=== PATIENT | female | born 1970 | race Caucasian/White ===

== ENCOUNTER 2025-02-25 04:26 | Inpatient (IN) | payer OTHER, SELFPAY ==
[2025-02-24 21:35] VITALS: BP 113/76
[2025-02-24 22:04] VITALS: BMI 20.8
[2025-02-24 22:12] LABS: % Basophils 0.2 % (0-2); % Eosinophils 1.7 % (0-6); % Immature Granulocytes 0.9 % (0-0.5); % Lymphocytes 15.9 % (20.5-51.1); % Monocytes 3.6 % (1.7-9.3); % Neutrophils 77.7 % (42.2-75.2); Absolute Eosinophils 0.1 10^3/uL (0-0.7); Absolute Immature Granulocytes 0.1 10^3/uL (0-0.05); Absolute Lymphocytes 0.9 10^3/uL (1.2-3.4); Absolute Monocytes 0.2 10^3/uL (0.1-0.6); Absolute Neutrophils 4.5 10^3/uL (1.4-6.5); Hematocrit 24.3 % (37.0-47.0); Hemoglobin 7.9 g/dL (12.0-16.0); Mean Corp Hgb Conc. 32.5 g/dL (33.0-37.0); Mean Corpuscular Volume 73.9 fL (81.0-99.0); Mean Platelet Volume 9.6 fL (7.4-10.4); Nucleated Red Blood Cells % 0 %; Platelet Count 170 10^3/uL (130-400); Red Blood Cell Count 3.29 10^6/uL (4.20-5.40); Red Cell Dist. Width 15.4 % (11.5-14.5); White Blood Cell Count 5.8 10^3/uL (4.8-10.8)
--- NOTE | 2025-02-24 22:15 | ED.GENMED ---
History of Present Illness
<Tracy Salazar PA-C - Last Filed: 02/25/25 10:13>
General
Chief Complaint: Abdominal Symptoms
Source: patient and family
Exam Limitations: none
Time Seen by Provider: 02/24/25 21:59
History of Present Illness
History of Present Illness:
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 Herbie Will, first chemo treatment 6 days ago) presenting with her siblings for evaluation of abdominal pain. She reports pain in her upper abdomen for the
past week or so which has been worsening. She is also experiencing abdominal distention and feels like her abdomen is hard. She states it feels like she is 9 months . She had a temperature of 100.9 yesterday but has not had any fevers
since. She has been in contact with her oncology team who was concerned about possible ascites so she has an abdominal ultrasound scheduled for tomorrow. She had 2 episodes of vomiting today which is new. She also started to feel short of breath
which she attributes to her abdominal distention. She is having loose bowel movements. No urinary symptoms.
Phy Exam
<Tracy Salazar PA-C - Last Filed: 02/25/25 10:13>
Physical Exam
Physical Exam:
Appears uncomfortable, non-toxic
General Physical Exam
General Presentation: no apparent distress
General Skin: warm and dry
General Habitus: normal
General Mental: alert
ENT Exam
ENT Exam: normocephalic
Cardiovascular Exam
Cardiovascular Exam: regular rate/rhythm
Pulmonary Exam
Pulmonary Exam: lungs clear, no respiratory distress, no rales, no crackles, no rhonchi and no wheezing
Gastrointestinal Exam
Gastrointestinal Exam: soft and other (+Upper abdominal tenderness and distention noted. Negative fluid wave.)
Neurological Exam
Neurological Exam: alert
[place] Coma Scale
Eye Opening: Spontaneous
Verbal Response: Oriented
Motor Response: Obeys Commands
GCS Total Score: 15
Skin Exam
Skin Exam: normal color and warm/dry
Psychiatric Exam
Psychiatric Exam: normal mood/affect
<Antonia DoloresShelly Greco PA-C - Last Filed: 02/25/25 04:01>
Komal Coma Scale
GCS Total Score: 15
Course
<Tracy Salazar PA-C - Last Filed: 02/25/25 10:13>
Orders/Labs/Results
Orders:
Orders
02/24/25 21:38
IV Insert/Care/Rem.- Treatment PRN
02/24/25 22:01
Complete Blood Count/With Diff Urgent
Comprehensive Metabolic Panel Urgent
Lactic Acid Urgent
Lipase Urgent
02/24/25 22:12
Electrocardiogram (*1) Urgent
Reason for Study: Shortness of Breath
EKG- Treatment ONCE
02/24/25 22:14
0.9% Sodium Chloride 1000 ml [Nss] 1,000 ml IV BOLUS
HYDROmorphone [Dilaudid] 0.5 mg IV NOW STA
Iohexol [Omnipaque] See Protocol PO NOW STA
Ondansetron Injectable [Zofran] 4 mg IV NOW STA
02/24/25 22:58
Troponin I Urgent
02/24/25 23:17
Diphenhydramine [Benadryl] 25 mg IV NOW STA
Prochlorperazine [Compazine] 10 mg IV NOW STA
02/25/25 00:30
CT Pe/abd/pel W Urgent
Comment: CHANGED TO COMBINED
Reason For Exam: SOB
02/25/25 01:01
NG Tube [GI tube insertion- Treatment] ONCE
02/25/25 01:33
Heparin 4,500 units IV NOW STA
02/25/25 01:45
Heparin 65701 Units/250 ml 25,000 units in 250 ml IV PER PROTOCOL
Weight to be used for heparin protocol in kilograms (kg):: 56.8
Protocol:: DVT/PE
PTT Goal Range to be used:: PTT 73 to 111 seconds
Order type:: Initial
INITIAL Infusion Dose (UNITS/KG/hr) & then follow protocol:: 18 units/kg/hr
Infusion Dose in UNITS/hr & then follow protocol (UNITS/hr):: 1,000
INFUSION RATE in mL/hr & then follow protocol (mL/hr):: 10
For DVT/PE algorithm, re-bolus for low PTT?: Yes
PTT less than or equal to 64 seconds:: Re-bolus 80 units/kg (max 10,000units). Increase by 200 units/hr
(+ 2mL/hr)
PTT 64.1 to 72.9 seconds:: Re-bolus 40 units/kg (max 5,000 units). Increase by 100 units/hr
(+ 1mL/hr)
PTT 73 to 111 seconds:: Target Range. No change in rate.
PTT 111.1 to 130.9 seconds:: Decrease rate by 100 units/hr (- 1 mL/hr)
PTT 131 to 199.9 seconds:: HOLD for 1 hr. Then decrease by 200 units/hr (- 2mL/hr)
PTT greater than or equal to 200 seconds:: HOLD for 2 hrs & Notify Provider. Then decrease by 200 units/hr
(- 2mL/hr)
Lab follow-up:: Each change, PTT q6h until 2 consecutive are therapeutic. Then
PTT daily.
02/25/25 02:23
PTT Urgent
Comment: Obtain baseline before beginning heparin infusion if not already collected
02/25/25 02:[address] Non Medication Order As Directed
Physician Order: PTT 6 hours after initial start of Heparin infusion
Above order entered?: Yes
02/25/25 03:30
Admit/Transfer Patient As Directed
Co-Sign Provider:
Level of Care: Inpatient admission
Assign to:: IMU- Intermediate Care
Physician / Group: [facility]
Diagnosis: Pulmonary Emboli, Duodenal Mass / GOO
Reason for Hospitalization: Pulmonary Emboli, Duodenal Mass / GOO
Expected length of stay greater than two midnights?: Yes
ELOS- Estimated Length of Stay in days: 5
I certify the patient meets the requirements for IP care: Yes
PRN Pain Medication Management As Directed
May give lesser potent ordered pain med per pt: Yes
preference::
Protocol:: Medication orders for pain may be administered in a
manner that supports deferring to patient preference
when the pt is:
- Requesting an ordered lesser potent pain medication.
Least to most potent pain medications are defined
as: acetaminophen < NSAID < tramadol < opioids
(morphine, oxycodone, hydromorphone).
- Requesting a lesser dose of the same medication IF
ORDERED.
- Requesting a less intrusive route of administration
if both routes are prescribed by the provider (PO <
IV).
02/25/25 03:31
Code Status As Directed
Resuscitation Status: Full Code
02/25/25 03:37
Heparin 4,500 units IV PRN PRN
02/25/25 03:39
Heparin 2,300 units IV PRN PRN
02/25/25 04:00
Flush (0.9% Sodium Chloride) [Flush (Nss)] See Dose Instructions IV PER PROTOCOL
02/25/25 05:02
Acetaminophen [Tylenol] 650 mg PO Q4HPRN PRN
HYDROmorphone [Dilaudid] 0.5 mg IV Q4HPRN PRN
Lactated Ringers [Lr] 1,000 ml IV 100 mls/hr
Ondansetron Injectable [Zofran] 4 mg IV Q6HPRN PRN
02/25/25 05:02
Echo 2D MMode Doppler [Echo 2D MMode Color/Doppler] Routine
Reason for Study: PE
Consult Notification Routine
Specialty to Notify: Gastroenterology
Date consulting provider notified: 02/25/25
Time consulting provider notified: 07:10
Notified:: Provider
Comment: [place] Text
GASTROINTESTINAL CONSULT Routine
Consulting Provider: Evelina Whitten
Was physician already notified: No
Reason for consult: Duodenal Mass / GOO
Heparin Protocol- PTT Orders As Directed
PTT per Heparin protocol: -Obtain CBC and baseline PTT - if not already collected.
-Obtain PTT 6 hours from start of infusion. Then, every 6 hours until 2 consecutive
PTT's are therapeutic. Then, PTT Daily.
-With each rate change, obtain PTT every 6 hours until 2 consecutive PTT's are
therapeutic. Then, PTT Daily.
Activity As Directed
Activity Level: Ambulate
With Assistance
EKG with chest pain [ECG as needed] As Directed
ECG as needed for:: Chest Pain
Gastrointestinal Tubes As Directed
Type: [place] sump
To suction?: Yes
Type of suction: Low intermittent
Irrigate tube?: Yes
Irrigant: Tap Water
Frequency: Q4H
Amount in mls: 30
Irrigation Directions: Irrigate Q4H and PRN
I/O [Intake/ Output] As Directed
Frequency: Per unit guidelines
Notify MD As Directed
Notify physician if: PTT is greater than or equal to 200.
Vital Signs As Directed
Frequency: Per unit guidelines
Weight As Directed
Frequency: Daily
Oxygen Therapy [O2 Therapy] [RESP] Routine
Titrate/Wean O2 to maintain O2 sat greater than (%): 94
02/25/25 Breakfast
NPO
Allow oral meds: Yes
Allow clear liquids: Sips of Clears
NPO with Ice Chips: Yes
02/25/25 08:00
Pantoprazole [Protonix IV] 40 mg IV DAILY
02/25/25 09:38
Basic Metabolic Panel IN AM
Ferritin Routine
Iron Routine
Total Iron Binding Routine
02/27/25 06:00
Complete Blood Count/No Diff Q2D
Comment: notify provider: Platelet count < 130,000 or decrease by 50% from baseline
03/01/25 06:00
Complete Blood Count/No Diff Q2D
Comment: notify provider: Platelet count < 130,000 or decrease by 50% from baseline
03/03/25 06:00
Complete Blood Count/No Diff Q2D
Comment: notify provider: Platelet count < 130,000 or decrease by 50% from baseline
03/05/25 06:00
Complete Blood Count/No Diff Q2D
Comment: notify provider: Platelet count < 130,000 or decrease by 50% from baseline
03/07/25 06:00
Complete Blood Count/No Diff Q2D
Comment: notify provider: Platelet count < 130,000 or decrease by 50% from baseline
03/09/25 06:00
Complete Blood Count/No Diff Q2D
Comment: notify provider: Platelet count < 130,000 or decrease by 50% from baseline
03/11/25 06:00
Complete Blood Count/No Diff Q2D
Comment: notify provider: Platelet count < 130,000 or decrease by 50% from baseline
03/13/25 06:00
Complete Blood Count/No Diff Q2D
Comment: notify provider: Platelet count < 130,000 or decrease by 50% from baseline
Abnormal Lab Results
02/24/25
22:01
RBC 3.29 L 10^6/uL
(4.20-5.40)
Hgb 7.9 L g/dL
(12.0-16.0)
Hct 24.3 L %
(37.0-47.0)
MCV 73.9 L fL
(81.0-99.0)
MCH 24.0 L pg
(27.0-31.0)
MCHC 32.5 L g/dL
(33.0-37.0)
RDW 15.4 H %
(11.5-14.5)
Abs Immat Gran (auto) 0.1 H 10^3/uL
(0-0.05)
Absolute Lymphs (auto) 0.9 L 10^3/uL
(1.2-3.4)
Immature Gran % 0.9 H %
(0-0.5)
Neutrophils % 77.7 H %
(42.2-75.2)
Lymphocytes % 15.9 L %
(20.5-51.1)
Creatinine 0.5 L mg/dL
(0.6-1.0)
Glucose 125 H mg/dl
(70-99)
AST 63 H U/L
(14-36)
ALT 122 H U/L
(0-35)
Alkaline Phosphatase 392 H U/L
(38-126)
Albumin 3.4 L g/dl
(3.5-5.0)
Lipase 381 H U/L
(23-300)
02/24/25 22:01
02/24/25 22:01
Vital Signs
Initial and Last Documented VS:
Initial Vital Signs
Temp Pulse Resp BP Pulse Ox
99.2 F 107 19 113/76 96
02/24/25 21:35 02/24/25 21:35 02/24/25 21:35 02/24/25 21:35 02/24/25 21:35
Last Documented Vital Signs
Temp Pulse Resp BP Pulse Ox
98.6 F 94 19 119/64 94
02/25/25 07:15 02/25/25 06:00 02/25/25 06:00 02/25/25 06:00 02/25/25 06:00
<Antonia Greco PA-C - Last Filed: 02/25/25 04:01>
Orders/Labs/Results
Orders:
Orders
02/24/25 21:38
IV Insert/Care/Rem.- Treatment PRN
02/24/25 22:01
Complete Blood Count/With Diff Urgent
Comprehensive Metabolic Panel Urgent
Lactic Acid Urgent
Lipase Urgent
02/24/25 22:12
Electrocardiogram (*1) Urgent
Reason for Study: Shortness of Breath
EKG- Treatment ONCE
02/24/25 22:14
0.9% Sodium Chloride 1000 ml [Nss] 1,000 ml IV BOLUS
HYDROmorphone [Dilaudid] 0.5 mg IV NOW STA
Iohexol [Omnipaque] See Protocol PO NOW STA
Ondansetron Injectable [Zofran] 4 mg IV NOW STA
02/24/25 22:58
Troponin I Urgent
02/24/25 23:17
Diphenhydramine [Benadryl] 25 mg IV NOW STA
Prochlorperazine [Compazine] 10 mg IV NOW STA
02/25/25 00:30
CT Pe/abd/pel W Urgent
Comment: CHANGED TO COMBINED
Reason For Exam: SOB
02/25/25 01:01
NG Tube [GI tube insertion- Treatment] ONCE
02/25/25 01:33
Heparin 4,500 units IV NOW STA
02/25/25 01:45
Heparin 75739 Units/250 ml 25,000 units in 250 ml IV PER PROTOCOL
Weight to be used for heparin protocol in kilograms (kg):: 56.8
Protocol:: DVT/PE
PTT Goal Range to be used:: PTT 73 to 111 seconds
Order type:: Initial
INITIAL Infusion Dose (UNITS/KG/hr) & then follow protocol:: 18 units/kg/hr
Infusion Dose in UNITS/hr & then follow protocol (UNITS/hr):: 1,000
INFUSION RATE in mL/hr & then follow protocol (mL/hr):: 10
For DVT/PE algorithm, re-bolus for low PTT?: Yes
PTT less than or equal to 64 seconds:: Re-bolus 80 units/kg (max 10,000units). Increase by 200 units/hr
(+ 2mL/hr)
PTT 64.1 to 72.9 seconds:: Re-bolus 40 units/kg (max 5,000 units). Increase by 100 units/hr
(+ 1mL/hr)
PTT 73 to 111 seconds:: Target Range. No change in rate.
PTT 111.1 to 130.9 seconds:: Decrease rate by 100 units/hr (- 1 mL/hr)
PTT 131 to 199.9 seconds:: HOLD for 1 hr. Then decrease by 200 units/hr (- 2mL/hr)
PTT greater than or equal to 200 seconds:: HOLD for 2 hrs & Notify Provider. Then decrease by 200 units/hr
(- 2mL/hr)
Lab follow-up:: Each change, PTT q6h until 2 consecutive are therapeutic. Then
PTT daily.
02/25/25 02:23
PTT Urgent
Comment: Obtain baseline before beginning heparin infusion if not already collected
02/25/25 02:[address] Non Medication Order As Directed
Physician Order: PTT 6 hours after initial start of Heparin infusion
Above order entered?: Yes
02/25/25 03:30
Admit/Transfer Patient As Directed
Co-Sign Provider:
Level of Care: Inpatient admission
Assign to:: IMU- Intermediate Care
Physician / Group: Clint
Diagnosis: Pulmonary Emboli, Duodenal Mass / GOO
Reason for Hospitalization: Pulmonary Emboli, Duodenal Mass / GOO
Expected length of stay greater than two midnights?: Yes
ELOS- Estimated Length of Stay in days: 5
I certify the patient meets the requirements for IP care: Yes
PRN Pain Medication Management As Directed
May give lesser potent ordered pain med per pt: Yes
preference::
Protocol:: Medication orders for pain may be administered in a
manner that supports deferring to patient preference
when the pt is:
- Requesting an ordered lesser potent pain medication.
Least to most potent pain medications are defined
as: acetaminophen < NSAID < tramadol < opioids
(morphine, oxycodone, hydromorphone).
- Requesting a lesser dose of the same medication IF
ORDERED.
- Requesting a less intrusive route of administration
if both routes are prescribed by the provider (PO <
IV).
02/25/25 03:31
Code Status As Directed
Resuscitation Status: Full Code
02/25/25 03:37
Heparin 4,500 units IV PRN PRN
02/25/25 03:39
Heparin 2,300 units IV PRN PRN
02/25/25 04:00
Flush (0.9% Sodium Chloride) [Flush (Nss)] See Dose Instructions IV PER PROTOCOL
02/25/25 05:02
Acetaminophen [Tylenol] 650 mg PO Q4HPRN PRN
HYDROmorphone [Dilaudid] 0.5 mg IV Q4HPRN PRN
Lactated Ringers [Lr] 1,000 ml IV 100 mls/hr
Ondansetron Injectable [Zofran] 4 mg IV Q6HPRN PRN
02/25/25 05:02
Echo 2D MMode Doppler [Echo 2D MMode Color/Doppler] Routine
Reason for Study: PE
Consult Notification Routine
Specialty to Notify: Gastroenterology
Date consulting provider notified: 02/25/25
Time consulting provider notified: 07:10
Notified:: Provider
Comment: [place] Text
GASTROINTESTINAL CONSULT Routine
Consulting Provider: Evelina Whitten
Was physician already notified: No
Reason for consult: Duodenal Mass / GOO
Heparin Protocol- PTT Orders As Directed
PTT per Heparin protocol: -Obtain CBC and baseline PTT - if not already collected.
-Obtain PTT 6 hours from start of infusion. Then, every 6 hours until 2 consecutive
PTT's are therapeutic. Then, PTT Daily.
-With each rate change, obtain PTT every 6 hours until 2 consecutive PTT's are
therapeutic. Then, PTT Daily.
Activity As Directed
Activity Level: Ambulate
With Assistance
EKG with chest pain [ECG as needed] As Directed
ECG as needed for:: Chest Pain
Gastrointestinal Tubes As Directed
Type: [place] sump
To suction?: Yes
Type of suction: Low intermittent
Irrigate tube?: Yes
Irrigant: Tap Water
Frequency: Q4H
Amount in mls: 30
Irrigation Directions: Irrigate Q4H and PRN
I/O [Intake/ Output] As Directed
Frequency: Per unit guidelines
Notify MD As Directed
Notify physician if: PTT is greater than or equal to 200.
Vital Signs As Directed
Frequency: Per unit guidelines
Weight As Directed
Frequency: Daily
Oxygen Therapy [O2 Therapy] [RESP] Routine
Titrate/Wean O2 to maintain O2 sat greater than (%): 94
02/25/25 Breakfast
NPO
Allow oral meds: Yes
Allow clear liquids: Sips of Clears
NPO with Ice Chips: Yes
02/25/25 08:00
Pantoprazole [Protonix IV] 40 mg IV DAILY
02/25/25 09:38
Basic Metabolic Panel IN AM
Ferritin Routine
Iron Routine
Total Iron Binding Routine
02/27/25 06:00
Complete Blood Count/No Diff Q2D
Comment: notify provider: Platelet count < 130,000 or decrease by 50% from baseline
03/01/25 06:00
Complete Blood Count/No Diff Q2D
Comment: notify provider: Platelet count < 130,000 or decrease by 50% from baseline
03/03/25 06:00
Complete Blood Count/No Diff Q2D
Comment: notify provider: Platelet count < 130,000 or decrease by 50% from baseline
03/05/25 06:00
Complete Blood Count/No Diff Q2D
Comment: notify provider: Platelet count < 130,000 or decrease by 50% from baseline
03/07/25 06:00
Complete Blood Count/No Diff Q2D
Comment: notify provider: Platelet count < 130,000 or decrease by 50% from baseline
03/09/25 06:00
Complete Blood Count/No Diff Q2D
Comment: notify provider: Platelet count < 130,000 or decrease by 50% from baseline
03/11/25 06:00
Complete Blood Count/No Diff Q2D
Comment: notify provider: Platelet count < 130,000 or decrease by 50% from baseline
03/13/25 06:00
Complete Blood Count/No Diff Q2D
Comment: notify provider: Platelet count < 130,000 or decrease by 50% from baseline
Abnormal Lab Results
02/24/25
22:01
RBC 3.29 L 10^6/uL
(4.20-5.40)
Hgb 7.9 L g/dL
(12.0-16.0)
Hct 24.3 L %
(37.0-47.0)
MCV 73.9 L fL
(81.0-99.0)
MCH 24.0 L pg
(27.0-31.0)
MCHC 32.5 L g/dL
(33.0-37.0)
RDW 15.4 H %
(11.5-14.5)
Abs Immat Gran (auto) 0.1 H 10^3/uL
(0-0.05)
Absolute Lymphs (auto) 0.9 L 10^3/uL
(1.2-3.4)
Immature Gran % 0.9 H %
(0-0.5)
Neutrophils % 77.7 H %
(42.2-75.2)
Lymphocytes % 15.9 L %
(20.5-51.1)
Creatinine 0.5 L mg/dL
(0.6-1.0)
Glucose 125 H mg/dl
(70-99)
AST 63 H U/L
(14-36)
ALT 122 H U/L
(0-35)
Alkaline Phosphatase 392 H U/L
(38-126)
Albumin 3.4 L g/dl
(3.5-5.0)
Lipase 381 H U/L
(23-300)
02/24/25 22:01
02/24/25 22:01
Vital Signs
Initial and Last Documented VS:
Initial Vital Signs
Temp Pulse Resp BP Pulse Ox
99.2 F 107 19 113/76 96
02/24/25 21:35 02/24/25 21:35 02/24/25 21:35 02/24/25 21:35 02/24/25 21:35
Last Documented Vital Signs
Temp Pulse Resp BP Pulse Ox
98.6 F 94 19 119/64 94
02/25/25 07:15 02/25/25 06:00 02/25/25 06:00 02/25/25 06:00 02/25/25 06:00
Stephielt;Tracy Salazar PA-C - Last Filed: 02/25/25 10:13>
MDM/Problems Addressed
Differential Diagnosis Includes:
54yoF here with abd pain, distention, and SOB. Two episode of vomiting today. Hx of duodenal adenocarcinoma. Just started chemo 6 days ago. HR 107. Remainder of vitals are stable. She appears uncomfortable but is non-toxic. No signs of peritonitis
on abdominal exam. Negative fluid wave. Differential diagnosis includes but is not limited to: cancer related pain, SBO, constipation, ascites
Initial ED plan: Check abdominal labs, lactate, troponin/EKG, and CTA CAP with PO contrast. IV Dilaudid, Zofran, and fluid bolus for symptoms.
Final assessment: Hemoglobin 7.9. I was able to review her labs from 02/18/25 and hemoglobin was 7.4 at that time. Mild transaminitis and lipase elevation noted. Patient reports a known history of liver metastases. CT reviewed personally which shows
bilateral pulmonary emboli. Marked gastric distention also noted. NG tube and heparin gtt ordered. Case signed out to Antonia Greco PA-C pending formal radiology read.
<Tracy Salazar PA-C - Last Filed: 02/25/25 10:13>
*EKG
Interpreted by ED Provider?: Yes
EKG Intrepretation Date: 02/24/25
Heart Rate: 94
Rate: normal
Rhythm: sinus
[place]: normal axis
Interval: normal interval
QRS Pattern: normal QRS
Ischemia: no ischemia
<Antonai Greco PA-C - Last Filed: 02/25/25 04:01>
*Pulse Oximetry
Patient hypoxic: no
*Critical Care Note
Total Time (30-74mins, 75-104mins- exclusive of procedures): Not Applicable
<Antonia Greco PA-C - Last Filed: 02/25/25 04:01>
Update Note
Update Note:
Update
I received patient in signout.
Her CT scan reveals bilateral pulmonary emboli, no evidence of heart strain, there is evidence of pulmonary infarct. Heparin was started prior to my assessment. In addition, she has a duodenal mass causing gastric outlet obstruction. NG tube was
placed. She is stable at this time. There is also evidence of a mild colitis however in light of no fever no white count, will defer possible antibiotics to hospitalist. Patient referred for admission.
ED Attending Note
<Tracy Salazar PA-C - Last Filed: 02/25/25 10:13>
-
Portions of this chart may have been created with voice recognition software.� Occasional wrong word or��sound alike� substitutions may have occurred due to the inherent limitations of voice recognition software.
Discharge Plan
Departure
Patient Disposition: Admit
Date of Disposition: 02/25/25
Time of Disposition: 03:04
Presentation/result/management discussed w/ accepting MD/DO: Hospitalist
Patient with high blood pressure during this ER visit?: Yes
Condition: Fair
Discharge Problem:
Bilateral pulmonary embolism, Gastric outlet obstruction, Duodenal cancer
Interventions
Interventions:
*Risk Screen - Suicide Last Done: 02/25/25 05:20
*General Assessment Last Done: 02/25/25 05:16
*Neglect/Abuse Screening Last Done: 02/24/25 21:35
*ED- Fall Risk Assessment Last Done: 02/25/25 05:16
*ED COVID-19 Vaccine History Last Done: 02/25/25 05:16
*Nursing Disposition Last Done: 02/25/25 05:16
ZL-Hrjzth-Jvrzakrfgq Assessment Last Done: 02/24/25 22:07
Discharge Date and Time
Discharge Date/Time: 02/25/25 05:17
[2025-02-24] MEDS: OMNIPAQUE 50 ML PO (22:23)
[2025-02-24 22:24] LABS: ALT (SGPT) 122 U/L (0-35); AST (SGOT) 63 U/L (14-36); Albumin 3.4 g/dl (3.5-5.0); Alkaline Phosphatase 392 U/L (38-126); Blood Urea Nitrogen 9 mg/dl (7-17); Calcium 9.1 mg/dl (8.4-10.2); Carbon Dioxide 29 mmol/L (22-30); Chloride 101 mmol/L (98-107); Estimated Creatinine Clearance 94 ml/min; Glucose 125 mg/dl (70-99); Lipase 381 U/L (23-300); Potassium 3.9 mmol/L (3.5-5.1); Sodium 136 mmol/L (135-145); Total Bilirubin 0.5 mg/dl (0.2-1.3); Total Protein 6.3 g/dl (6.3-8.2); eGFR > 60.00
[2025-02-24 22:33] LABS: Lactic Acid 0.7 mmol/L (0.7-2.0)
[2025-02-24] MEDS: DILAUDID 0.5 MG IV (22:35)
[2025-02-24] MEDS: ZOFRAN 4 MG IV (22:36)
[2025-02-24] MEDS: NSS 1000 IV (22:36)
[2025-02-24 22:40] VITALS: BP 109/59
[2025-02-24 23:00] VITALS: BP 108/68
[2025-02-24 23:34] LABS: Troponin I < 0.012 ng/ml
[2025-02-25] VITALS (18 sets, daily range): BP systolic 108–128; BP diastolic 55–85
[2025-02-25] MEDS: BENADRYL IV (01:13)
[2025-02-25] MEDS: COMPAZINE IV (01:14)
[2025-02-25] MEDS: BENADRYL 25 MG IV (02:20)
[2025-02-25] MEDS: COMPAZINE 10 MG IV (02:21)
[2025-02-25 03:11] LABS: APTT 26.1 Sec (23.4-35.0)
--- NOTE | 2025-02-25 03:34 | HPS.HSE ---
Family Physician
-
Family Physician: NOT KNOW UNKNOWN - PT DOES
Chief Complaint
-
Abd Pain / Distention
History of Present Illness
Patient is a 54y F with PMH significant for recently diagnosed duodenal adenocarcinoma who presents to ED complaining of abdominal pain and distention. History obtained from patient and her family at the bedside. Patient was diagnosed with
duodenal adenocarcinoma in December 2024. She is followed at [facility] by Dr. Herbie Will. Patient recently started chemotherapy with her first dose last . She had been having issues with poor appetite, nausea and abdominal distention even prior
to beginning chemo. These symptoms persisted after chemo. Patent had no N/V/D or other acute symptoms immediately following chemotherapy session.
This evening, patient developed N/V and increased abdominal distention and presented to the ED for further evaluation.
She has been having bowel movements and reports 1-2 BM daily of loose / soft / non-bloody stools.
She was having fevers prior to the chemo which seemed to have improved. She did have elevated temp at 100.9 this evening prior to presentation.
Patient does report some SOB / DAVIS recently - which had been attributed to general weakness / fatigue.
No chest pain. No cough.
Medical History
Past Medical History
Past Medical History: Reports Other
Additional Past Medical History:
Duodenal Adenocarcinoma
Breast Cancer s/p Lumpectomy and XRT
Past Surgical History: Reports Other
Additional Past Surgical History:
Lumpectomy
Cholecystectomy
Social History
Tobacco: Non-smoker
Alcohol: Occasional
Drug: None
Personal:
Living: With Family
Family History
Family History: Other (Father: Prostate Cancer Aunts / Cousins: Breast Cancer, Colon Cancer, Uterine Cancer, Leukemia)
Allergies / Home Medications
Allergies reflects when Allergies were last updated in [facility], IP.
Home Medications with original date entered in [facility], IP
Allergy/Medication List:
Chemotherapy (Oxaliplatin, Irinotecan, Leucovorin, 5-FU)
Antiemetics
Vitamins
Review of Systems
-
History Source: Patient and Family
A 12 point ROS was completed and negative except as noted: Yes
Constitutional: Reports Fever and Fatigue; Denies Chills
EENT: Denies Sore Throat
Respiratory: Reports Trouble Breathing; Denies Cough
Cardiac: Denies Chest Pain or Palpitations
Abdomen/GI: Reports Abdominal Pain, Nausea, Vomiting, Diarrhea and Anorexia; Denies Bloody Stools or Black Stools
: Denies Dysuria or Frequency
Musculoskeletal: Denies Joint Pain, Muscle Pain or Edema
Neurological: Reports Weakness; Denies Dizzy or Headache
Physical Exam
Vital Signs
Vital Signs
Temp Pulse Resp BP Pulse Ox
99.2 F 106 12 128/62 94
02/24/25 21:35 02/25/25 02:30 02/25/25 02:30 02/25/25 02:28 02/25/25 01:51
Physical Exam
General: Other (Ill-appearing 54y F in mild distress due to abd pain / nausea.)
HEENT: Other (NG in place with light yellow drainage in device.)
Respiratory: Other (Decreased at bases - otherwise clear.)
Cardiac: S1/S2 and Tachycardia; No Murmur
GI: Soft, Non Tender, Normal Bowel Sounds and Other (Mildly distended. Pos bowel sounds. Not tender.)
Musculoskeletal: No Clubbing, No Cyanosis and No Edema
Neuro: AO x 3
Laboratory Results
-
02/24/25 22:01
02/24/25 22:01
Laboratory Results
APTT 26.1 Sec (23.4-35.0) 02/25/25 02:23
Lactic Acid 0.7 mmol/L (0.7-2.0) 02/24/25 22:01
Total Bilirubin 0.5 mg/dl (0.2-1.3) 02/24/25 22:01
AST 63 U/L (14-36) H 02/24/25 22:01
ALT 122 U/L (0-35) H 02/24/25 22:01
Alkaline Phosphatase 392 U/L (38-126) H 02/24/25 22:01
Troponin I < 0.012 ng/ml 02/24/25 22:58
Lipase 381 U/L (23-300) H 02/24/25 22:01
Impression/Plan
-
A/P: Patient is a 54y F with PMH significant for duodenal adenocarcinoma s/p initial chemo session who presents to ED complaining of abdominal distention, N/V.
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
Gastric Outlet Obstruction secondary to the above
- Admit for further evaluation and treatment.
- NG placed in the ED for decompression with significant improvement in distention / discomfort.
- Ice chips / sips for comfort. Supportive care / antiemetics.
- GI evaluation for additional recommendations / ? endoscopic exam with possible stenting.
- Followed by Dr. Herbie Will at [facility].
- s/p initial course of chemo last (FOLFIRINOX).
Bilateral Pulmonary Emboli
- Multiple, bilateral, subsegmental lesions seen on CTA.
- Likely secondary hypercoagulability of malignancy.
- Pos SOB. No chest pain.
- IV heparin started.
- Check Echo.
- Transition to OAC v Lovenox prior to discharge.
- Follow for any new chest pain, worsening dyspnea, etc.
Microcytic Anemia
- Hgb today is 7.9g/dL.
- Review of recent [facility] labs notes that Hgb was 7.4 prior to chemo.
- Patient received PRBCs x 1 during / after chemo.
- Follow H&H for any changes. Check iron studies.
- Transfuse if Hgb decreases (< 7). Consent in chart.
DVT Prophylaxis: On IV Heparin
Code Status: Full
[2025-02-25] MEDS: HEPARIN 25000 UNITS/250 ML IV (03:43)
[2025-02-25] MEDS: HEPARIN 4500 UNITS IV ×2 (03:55→19:33)
--- NOTE | 2025-02-25 05:46 | PTCARENOTE ---
Rec'd pt as new admit from ED RN. Heparin gtt intact at 1000units. NSR on CM, 95% on RA, BP 120/72. Denies pain at this time, but reports sore throat, discomfort with swallowing d/t NGT. NGT patent in L nare at 55 christine, connected to LIS per MD
orders. Call torre within reach. Family at bedside.
--- NOTE | 2025-02-25 09:08 | CON.GI ---
Addendum entered and electronically signed by Shalini Perez MD 02/25/25 13:47:
I saw and examined the patient.
The DATA SUPPORT ANALYST's note was reviewed and I agree with the note.
Comment: This is a very pleasant unfortunate 54 year old female with prior history of breast cancer and recently diagnosed with duodenal adenocarcinoma and gets her oncology care at [facility]. She says that she had her gallbladder removed in September for
abdominal pain at [facility] but her abdominal pain did not resolve with this then had an endoscopy and was noted to have a duodenal stricture with mass and was then referred to [facility] for endoscopic ultrasound and upon further testing was told
about 2 months ago that she had metastatic duodenal adenocarcinoma and was started on chemotherapy about a week ago. She follows up with Dr. Will at [facility] she now presents with worsening abdominal pain in the epigastric area with decreased oral
intake and early satiety and CT shows gastric outlet obstruction, also shows liver metastatic lesions and also was diagnosed with new PE and has been started on heparin. She lost about 8 pounds over the past 2 to 3 months. after placement of NG
tube in the ER 2 L was drained and she is feeling better.
Assessment and plan metastatic duodenal adenocarcinoma with metastatic lymph nodes and liver mets with gastric outlet obstruction feeling better after NG tube for decompression and Dr. Negron had discussed with Dr. Will they were agreeable with
proceeding with duodenal stent here and if unable to place a stent then possible transfer to [facility] to discuss other surgical/endoscopic options for decompression. Discussed with Dr. Davis and patient is scheduled for later in the afternoon. Heparin
held at 10 AM for the procedure needs to be restarted after the procedure
Original Note:
Consultation
-
Date/Time Consultation Requested: 02/25/25 0500
Date/Time Consultation Performed: 02/25/25 0915
Requesting Provider: Elvis Jaramillo DO
Performing Provider: EDWAR Main, Shalini Perez MD
Reason for Consultation: concern for duodenal obstruction
Medical History
Chief Complaint / HPI
Chief Complaint: abdominal pain and distention
History of Present Illness:
Pt is a 54yo with hx breast CA with prior lumpectomy and XRT and recently diagnosed duodenal adeno CA and anemia with recent transfusion. She recently started chemo at [facility] with Dr. Dominguez. She now presents with abdominal pain and distention
that has been worsening over time with wt loss and limited oral intakes. CT on admission with concern for gastric outlet obstruction. Also noted b/l PE and pt was placed on heparin. Asked to see for duodenal obstruction.
In review with patient and family had EGD at [facility] in October with inability to pass scope. She had delay with getting appt at [place] but had work up as below since end of December. She has been living on egg, yogert and shakes and now
with increased bloating and difficulty eating. She admits to some diarrhea noted yesterday. Wt loss 8-10 lbs since October. She denies GERD, hematemesis, odynophagia, abdominal pain, or rectal bleeding. NGT placement with 2 liters in ER and now
clear fluid. hbg 7.9, WBC 5,8, platelets 170, bili 0.5, AST 63, ALT 122, alk phos 392, lipase 381. albumin 3.4. No NSAIDs.
02/25/25 CT Pe/abd/pel W
1. Bilateral pulmonary embolism with emboli in segmental and subsegmental branches as detailed above. No findings suggestive of right heart strain at CT.
2. Marked gastric distention consistent with outlet obstruction. Transition apparently at level of proximal duodenum, not well seen. Site of the known duodenal malignancy is not definitively identified at CT.
3. Hepatomegaly and innumerable hepatic metastases. Metastatic retroperitoneal lymphadenopathy.
4. Small volume of ascites.
[facility] chart review:
01/20/25- EUS- duodenal stricture mass found in region of duodenal bulb, stricture pancreatic neck and heads/p FNA no signs of pathology in genu of pancreas, panc body and tail, several enlarged nodes in peripancreatic and periportal region with bx,
no CBD pathology
01/29/25- liver biopsy adeno CA moderate differentiated
01/2025- MRI abdomen - ill defined mass along pancreatic duodenal groove with overall arterial phases hypoenhancement worrisome for malignancy - unclear if pancreatic origin or arising from subacent bowel, t/c EGD, man pancreatic duct not dilated
upper abdominal adenopathy hyperenhancing in liver possible collision tumor t/c liver bx no duodenal outlet obstruction
01/2025- CEA 445.1, CA 19-9 393, 940
01/2025- path small intestine - adeno CA in background of erosions and dysplastic epithelium, pancreas pancreatic/duodenal mass adeno CA, lymph node- nora-pancreatic adeno CA
-01/2025- WBC 10, hbg 7.4, hct 23,bili 0.5, AST 28, ALT 32, alk phos 218,
-01/2025 CT chest no PE
Past Medical History
Past Medical History: Cancer (duodenal adeno CA, breast Ca with lumpectomy and XRT)
Past Surgical History: Cholecystectomy and Other (lumpectomy)
Social History
Tobacco: Non-Smoker
Alcohol: None
Drug: None
Living: With Family (parents )
Family History
Family History: Other (2 aunts with colon CA)
Allergies / Home Medications
Allergy/AdvReac Type Severity Reaction Status Date / Time
No Known Allergies Allergy Unverified 02/24/25 21:34
�Medication �Instructions �Recorded
Unobtainable 02/25/25
Review of Systems
-
History Source: Patient and Family (brother and sister )
Constitutional: Reports Weight Loss
EENT: Reports No Symptoms
Respiratory: Reports No Symptoms
Cardiac: Reports No Symptoms
Abdomen/GI: Reports Abdominal Pain, Nausea, Vomiting, Diarrhea and Other (bloating )
: Reports No Symptoms
Musculoskeletal: Reports No Symptoms
Skin: Reports No Symptoms
Neurological: Reports No Symptoms
Endocrine: Reports No Symptoms
Hematologic/Lymphatic: Reports No Symptoms
Vital Signs
Temp Pulse Resp BP Pulse Ox
99.2 F 94 19 119/64 94
02/24/25 21:35 02/25/25 06:00 02/25/25 06:00 02/25/25 06:00 02/25/25 06:00
Physical Exam
Exam
General: Well Developed, Well Nourished and No Apparent Distress
HEENT: Normocephalic
Respiratory: Clear
Cardiac: Regular Rhythm
GI: Soft, Distended (mild) and Other (NGT to suction 2 liters in ER then )
Genito-urinary: No Costovertebral Tender
Musculoskeletal: No Clubbing and No Cyanosis
Skin: Warm and Dry
Neuro: Awake, Alert and AO x 3
Psych: Calm
Results
WBC 5.8 10^3/uL (4.8-10.8) 02/24/25 22:01
Hgb 7.9 g/dL (12.0-16.0) L 02/24/25 22:01
Hct 24.3 % (37.0-47.0) L 02/24/25 22:01
MCV 73.9 fL (81.0-99.0) L 02/24/25 22:01
Plt Count 170 10^3/uL (130-400) 02/24/25 22:01
Absolute Neuts (auto) 4.5 10^3/uL (1.4-6.5) 02/24/25 22:01
APTT 26.1 Sec (23.4-35.0) 02/25/25 02:23
Sodium 136 mmol/L (135-145) 02/24/25 22:01
Potassium 3.9 mmol/L (3.5-5.1) 02/24/25 22:01
Chloride 101 mmol/L (98-107) 02/24/25 22:01
Carbon Dioxide 29 mmol/L (22-30) 02/24/25 22:01
BUN 9 mg/dl (7-17) 02/24/25 22:01
Creatinine 0.5 mg/dL (0.6-1.0) L 02/24/25 22:
Calcium 9.1 mg/dl (8.4-10.2) 02/24/25 22:
Total Bilirubin 0.5 mg/dl (0.2-1.3) 02/24/25 22:
AST 63 U/L (14-36) H 02/24/25 22:
ALT 122 U/L (0-35) H 02/24/25 22:
Alkaline Phosphatase 392 U/L (38-126) H 02/24/25 22:
Lipase 381 U/L (23-300) H 02/24/25 22:
Diagnostic Image Results:
01/20/25- EUS- duodenal stricture mass found in region of duodenal bulb, stricture pancreatic neck and heads/p FNA no signs of pathology in genu of pancreas, panc body and tail, several enlarged nodes in peripancreatic and periportal region with bx,
no CBD pathology
01/29/25- liver biopsy adeno CA moderate differentiated
01/2025- MRI abdomen - ill defined mass along pancreatic duodenal groove with overall arterial phases hypoenhancement worrisome for malignancy - unclear if pancreatic origin or arising from subacent bowel, t/c EGD, man pancreatic duct not dilated
upper abdominal adenopathy hyperenhancing in liver possible collision tumor t/c liver bx no duodenal outlet obstruction
01/2025- CEA 445.1, CA 19-9 393, 940
01/2025- path small intestine - adeno CA in background of erosions and dysplastic epithelium, pancreas pancreatic/duodenal mass adeno CA, lymph node- nora-pancreatic adeno CA
-01/2025- WBC 10, hbg 7.4, hct 23,bili 0.5, AST 28, ALT 32, alk phos 218,
-01/2025 CT chest no PE
Prior GI Procedures:
EGD: at [facility] unable to traverse
Assessment / Plan
-
Pt is a 54yo with hx breast CA with prior lumpectomy and XRT and recently diagnosed duodenal adeno CA and anemia with recent transfusion. She recently started chemo at [facility] with Dr. Dominguez. She now presents with abdominal pain and distention
that has been worsening over time with wt loss and limited oral intakes. CT on admission with concern for gastric outlet obstruction. Also noted b/l PE and pt was placed on heparin. Asked to see for duodenal obstruction.
In review with patient and family had EGD at [facility] in October with inability to pass scope. She had delay with getting appt at [facility] but had work up as below since end of December. She has been living on egg, yogert and shakes and now with
increased bloating and difficulty eating. She admits to some diarrhea noted yesterday. Wt loss 8-10 lbs since October. She denies GERD, hematemesis, odynophagia, abdominal pain, or rectal bleeding. NGT placement with 2 liters in ER and now clear
fluid. hbg 7.9 WBC 5,8, platelets 170, bili 0.5, AST 63, ALT 122, alk phos 392, lipase 381. albumin 3.4. No NSAIDs.
-concern for gastric outlet obstruction with known metastatic duodenal adenoma with mets
-current chemo last (FOLFIRINOX)
-new PE on heparin
-anemia with recent transfusion
-breast CA with prior lumpectomy/XRT
-increased LFT's with liver mets
-wt loss
PLAN:
Etiology of gastric outlet with concern for obstruction from know duodenal lesion-- progressively worsening symptoms
cont NGT for now
Dr. Negron did review with known oncology Dr. Dominguez this am recommended attempt EGD and stenting
if unable to stent would need transfer to review with surgery
discussed with pt, family (sister and brother) , Dr. Nergon -- pt is willing to do EGD/duodenal stent attempt here today
heparin gtt hold at 10am- resume when able post procedure
trend hbg - close watch with new heparin gtt
trend LFT's
reviewed records with pt consent of portal as noted
family updated
spent over 90 minutes with family, pt, review of records and coordination for procedure
-
-
-
Thank you for consultation and allowing me to participate in the patient's care. Please call the operational intelligence officer GI physician during the after hours with any questions or concerns.
[2025-02-25] MEDS: NSS (PRESERVATIVE FREE) 10 ML IV (09:30)
[2025-02-25] MEDS: PROTONIX IV 40 MG IV (09:30)
[2025-02-25] MEDS: LR 1000 IV ×2 (09:31→22:35)
[2025-02-25 10:22] LABS: APTT 44.4 Sec (23.4-35.0)
--- NOTE | 2025-02-25 10:27 | W.PN.HOSP.TC ---
Today's Communication/Plan
-
EGD/possible stenting today
IV heparin to be shut off for procedure; resume when able from GI perspective
Family/patient updated
Assessment / Plan
Assessment / Plan
Assessment:
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
Gastric Outlet Obstruction secondary to the above
- NG placed in the ED for decompression with significant improvement in distention/discomfort.
- Ice chips/sips for comfort. Supportive care/antiemetics.
- I discussed possible transfer with her Oncologist Dr. Herbie Will; he would suggest EGD/Stenting at and if no success, can pursue transfer to [place] [place].
- GI evaluation; plan for EGD/Stent this afternoon.
- most recent chemo last (FOLFIRINOX).
Bilateral Pulmonary Emboli
- Multiple, bilateral, subsegmental lesions seen on CTA.
- Likely secondary hypercoagulability of malignancy.
- Pos SOB. No chest pain.
- IV heparin started.
- Check Echo.
- Transition to OAC v Lovenox prior to discharge.
- Follow for any new chest pain, worsening dyspnea, etc.
Microcytic Anemia
- Hgb today is 7.9 g/dL.
- Review of recent [place] labs notes that Hgb was 7.4 prior to chemo.
- Patient received PRBCs x 1 during / after chemo.
- Follow H&H for any changes. Check iron studies.
- Transfuse if Hgb decreases (< 7). Consent in chart.
DVT ppx: IV Heparin
Code Status: Full
Anticipated Discharge: > 48 hours
Subjective/Interval History
-
Date of Service: February 25, 2025
resting comfortably, denies any complaints present
NGT in place and patient states distention, nausea have improved
Objective Data
-
Labs:
Laboratory Results
02/25/25 02/25/25
02:23 09:38
APTT 26.1 44.4 H
Sodium Pending
Potassium Pending
Chloride Pending
Carbon Dioxide Pending
BUN Pending
Creatinine Pending
Glucose Pending
Calcium Pending
Vital Signs:
Vital Signs
Temp Pulse Resp BP Pulse Ox
98.6 F 94 19 119/64 94
02/25/25 07:15 02/25/25 06:00 02/25/25 06:00 02/25/25 06:00 02/25/25 06:00
I&O
02/24/25 02/25/25 02/26/25
06:59 06:59 06:59
Intake Total 1999 60 / 60
Balance 1999 60 60
Physical Exam
-
General: No Apparent Distress
HEENT: Normocephalic, Atraumatic and Other (+ NG tube)
Respiratory: Negative Wheezes
Cardiac: Regular Rhythm and S1/S2
GI: Soft
Musculoskeletal: No Edema
Neuro: AO x 3
Hematologic / Lymphatic: No Lymphadenopathy
Psych: Calm
Data Reviewed
-
Total Time Spent with Patient (in minutes): 42
Labs: Labs Reviewed by me
--- NOTE | 2025-02-25 10:39 | CON.GS ---
Addendum entered and electronically signed by Luis Mario MD 02/25/25 11:53:
Patient seen and examined in consultation with surgery resident. Agree with documented consultation note with additions noted here.
Family members at bedside.
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 Treatment to date has primarily been at [facility]. First dose of chemotherapy this
past week. She has been having gastric outlet obstructive symptoms for some time which actually slightly improved shortly after her initial dose of chemotherapy. They then returned and have progressed over the past few days to the point that she
was unable to tolerate any oral intake prompting emergency department evaluation. Her pain rapidly increased in severity as well over the past day or 2.
She is now resting comfortably with her NG tube in place and states that her pain has resolved other than the lingering discomfort. No further nausea or vomiting. She has had intermittent small bowel movements.
PMH: Stage IV duodenal adeno CA, history of breast CA status postlumpectomy/XRT; past abdominal surgical history only notable for lap cholecystectomy.
AF, normotensive, low-grade sinus tachycardia
ABD: Softly distended and some tympany to percussion. Minimal tenderness. No rebound rigidity or guarding.
NG tube in place with gastric contents in canister.
CT abdomen/pelvis imaging personally reviewed and interpreted as well as reviewing radiologist report. Large tumor burden occupying liver. Soft tissue masslike appearance around the head of the pancreas and first portion of the duodenum but
difficult to say exactly where the transition point is. Massively distended stomach from diaphragm all the way down to the pelvis. No pneumatosis within gastric wall. No extraluminal air. No abscess or fluid collections.
Assessment/plan: 54-year-old female with known stage IV duodenal adenocarcinoma presenting with progressive gastric outlet obstruction.
Agree with current plans for endoscopic evaluation and possible stenting.
No indications for immediate surgical intervention (perforation/ischemia)
If endoscopic stenting is not possible agree with consideration of transfer to [facility] where patient has been undergoing her care as there may be additional endoscopic procedures available for palliation which would be preferable over invasive
palliative surgical options.
Signing off, but available if can be of further assistance with patient's care during hospitalization.
Original Note:
Consultation
-
Date/Time Consultation Requested: 02/25/2025
Date/Time Consultation Performed: 02/25/2025
Performing Provider: Luis Mario
Medical History
-
Chief Complaint: Abdominal pain associated with nausea and vomiting
History of Present Illness:
Patient is a 54-year-old female with past medical history significant for stage IV metastatic duodenal cancer diagnosed recently in December 2024. She did not undergo any surgery for the tumor but was started on chemotherapy and her first session was
February 18, 2025
As per the patient, she had been having discomfort/burning in her abdomen for last 1 week, she was not able to eat much and was surviving on soft diet like yogurt, boiled eggs or Serbian muffin. She was having bowel movements but that was mostly
diarrhea. She said she was feeling heartburn, abdominal fullness, and nausea before chemotherapy and after chemotherapy a chest Getting worse and worse. She also had a temperature of 100 point 9 in the evening of presentation that prompted her to
go to the ER.
As per the patient, on presentation to the ER her abdomen was severely distended. A CT scan of abdomen/pelvis was done that revealed marked gastric distention consistent with outlet obstruction with transition point apparently at level of proximal
duodenum. Site of known duodenal malignancy is definitely identified on CT. Hepatomegaly with innumerable hepatic mets was identified
According to the patient has been having bowel movements and her last bowel movement was last night. She denies any nausea or abdominal pain
Past Medical History
Past Medical History: Other (Duodenal Adenocarcinoma Breast Cancer s/p Lumpectomy and XRT)
Past Surgical History: Cholecystectomy (September 2023, lumpectomy)
Social History
Tobacco: Non-Smoker
Alcohol: Occasional
Drug: None
Personal:
Living: With Family
Family History
Family History: Other ((Father: Prostate Cancer Aunts / Cousins: Breast Cancer, Colon Cancer, Uterine Cancer, Leukemia))
Allergies / Home Medications
Allergy/AdvReac Type Severity Reaction Status Date / Time
No Known Allergies Allergy Unverified 02/24/25 21:34
�Medication �Instructions �Recorded �Confirmed �Type
Unobtainable 02/25/25 02/25/25 History
Review of Systems
-
All other systems: Negative unless noted
A 10 point review of systems was completed, and was negative except as per HPI.
Physical Exam
Vital Signs
Temp Pulse Resp BP Pulse Ox
98.6 F 94 19 119/64 94
02/25/25 07:15 02/25/25 06:00 02/25/25 06:00 02/25/25 06:00 02/25/25 06:00
02/24/25 02/25/25 02/26/25
06:59 06:59 06:59
Actual Weight 56.8 kg
Body Mass Index (BMI) 20.8
Lab Results
02/24/25 22:01
WBC 5.8 10^3/uL (4.8-10.8) 02/24/25 22:01
Hgb 7.9 g/dL (12.0-16.0) L 02/24/25 22:01
Hct 24.3 % (37.0-47.0) L 02/24/25 22:01
Plt Count 170 10^3/uL (130-400) 02/24/25 22:01
Abs Immat Gran (auto) 0.1 10^3/uL (0-0.05) H 02/24/25 22:01
Neutrophils % 77.7 % (42.2-75.2) H 02/24/25 22:01
Physical Exam
General: Other (Chronically ill-appearing, very fragile and weak)
HEENT: Other (NGT in place with drainage)
Respiratory: Clear; Negative Wheezes, Rales or Rhonchi
Cardiac: S1/S2 and Regular Rhythm; Negative Murmur or Rub
GI: Soft, Non Tender and Normal Bowel Sounds
Musculoskeletal: No Clubbing, No Cyanosis and No Edema
Skin: Warm and Dry
Neuro: Awake and Oriented
Psych: Calm
Assessment / Plan
-
Impression
Patient is a 54-year-old female, with recent unfortunate diagnosis of stage IV duodenal adenocarcinoma with lymph node and liver mets. Admitted with gastric outlet obstruction secondary to disease burden.
Assessment/plan
Gastric outlet obstruction secondary to duodenal adenocarcinoma compression
NGT output greater than thousand in last 24 hours
Surgical intervention is not compatible at this time
N.p.o.
Continue IV fluids
Supportive management
Optimize pain control
As needed antiemetics
Agree with GI-endoscopic decompression would be the best option for the patient right now
Continue to monitor
Questions and concerns answered
DVT prophylaxis-heparin
CODE STATUS full code
[2025-02-25 10:42] LABS: Blood Urea Nitrogen 5 mg/dl (7-17); Calcium 8.5 mg/dl (8.4-10.2); Carbon Dioxide 27 mmol/L (22-30); Chloride 104 mmol/L (98-107); Estimated Creatinine Clearance 94 ml/min; Glucose 106 mg/dl (70-99); Iron 28 ug/dl (37-170); Potassium 3.9 mmol/L (3.5-5.1); Sodium 137 mmol/L (135-145); eGFR > 60.00
[2025-02-25 10:51] LABS: Percent Saturation 11 % (20-50); Total Iron Binding Capacity 239 ug/dl (265-497)
[2025-02-25 10:54] LABS: INR 1.11; PT 14.8 Sec (11.4-14.6)
--- NOTE | 2025-02-25 11:17 | PTCARENOTE ---
pt npo with ng to low intermittent suction draining minimal amounts clear fluid. pt denies abd pain or nausea. heparin on hold per order for GI procedure this afternoon. iv fluids infusing. family at bedside.
--- NOTE | 2025-02-25 13:23 | CM ---
Patient with Hx metasatic duodenal adenocarcinoma on chemo with Dx Gastric Outlet Obstruction, B/l pulmonary emboli, anemia. Plan endoscopic evaluation and possible stenting today. Room air. Receiving IVF, Heparin gtt. Per nurse; A/O, requires
assist of 1.
Spoke with Julia, patient's sister;
the patient resides with her parents in a 3 story house with 1 outside step and flight to 2nd floor bedroom.
The patient was independent in ADLs and ambulation.
She recently start chemo.
The patient has no DME or prior VN.
PCP - Elio Slaughter
Pharmacy - [facility]
Offered Advanced Directive and Julia states she thinks her sister is fragile right now and would not want to complete- Julia will let CM know if she wants one later.
CM continuing to follow.
Plan TBD.
--- NOTE | 2025-02-25 14:18 | PTCARENOTE ---
pt anxious and tearful. stes she cant 'turn her brain off' nervous about upcoming procedure and just generally about cancer diagnosis. emotional support given. pt states she takes a low dose of xanax nightly at home. discussed with hospitalist.
[2025-02-25] MEDS: ATIVAN 0.5 MG SL (14:49)
--- NOTE | 2025-02-25 18:22 | PTCARENOTE ---
pt returned from pacu post duodenal stent placement. ng tube is out. pt awakens easily. sat 93 on room air. sinus rytyhym on monitor. no c/o pain or nausea. family at bedside. awaitin further orders on restarting heparin drip.
--- NOTE | 2025-02-25 18:50 | W.PN.UPDATE ---
Update Note
Progress Note Update
Cross-cover--> Discussed with RN. Patient with recent GI procedure today and PE. Resume anticoagulation (heparin drip) per protocol as long as ok with GI-RN will clarify with GI team.
[2025-02-25] MEDS: XANAX 1 MG PO (23:16)
[2025-02-26] VITALS (18 sets, daily range): BP systolic 101–117; BP diastolic 59–71; BMI 19.4
[2025-02-26 02:47] LABS: APTT 65.9 Sec (23.4-35.0)
[2025-02-26 05:00] LABS: Hematocrit 21.2 % (37.0-47.0); Hemoglobin 6.6 g/dL (12.0-16.0); Mean Corp Hgb Conc. 31.1 g/dL (33.0-37.0); Mean Corpuscular Hgb 23.8 pg (27.0-31.0); Mean Corpuscular Volume 76.5 fL (81.0-99.0); Mean Platelet Volume 9.9 fL (7.4-10.4); Platelet Count 151 10^3/uL (130-400); Red Blood Cell Count 2.77 10^6/uL (4.20-5.40); Red Cell Dist. Width 15.4 % (11.5-14.5); White Blood Cell Count 4.2 10^3/uL (4.8-10.8)
[2025-02-26 05:27] LABS: ALT (SGPT) 80 U/L (0-35); AST (SGOT) 49 U/L (14-36); Albumin 2.7 g/dl (3.5-5.0); Alkaline Phosphatase 314 U/L (38-126); Blood Urea Nitrogen 7 mg/dl (7-17); Calcium 8.1 mg/dl (8.4-10.2); Carbon Dioxide 25 mmol/L (22-30); Chloride 106 mmol/L (98-107); Estimated Creatinine Clearance 87 ml/min; Glucose 83 mg/dl (70-99); Potassium 3.8 mmol/L (3.5-5.1); Sodium 139 mmol/L (135-145); Total Bilirubin 0.5 mg/dl (0.2-1.3); eGFR > 60.00
--- NOTE | 2025-02-26 05:34 | W.PN.UPDATE ---
Update Note
Progress Note Update
~ 5 am - AM labs: Hgb 6.6, Consent on file. Ordered type and screen and 1 unit PRBC's. Repeat H&H 2 hours status post transfusion. Ordered H&H Q6H x 3. Hematest stools.
Heparin gtt on hold until reviewed by Attending/GI. TT sent to GI to update.
--- NOTE | 2025-02-26 05:40 | PTCARENOTE ---
Hgb 6.6 with AM labs. Notified EDWAR Mo. T&S ordered and obtained. 1 unit PRBCs ordered. Consent on file. Hep gtt on hold per TOOL GRINDING MACHINE OPERATOR order.
[2025-02-26] MEDS: NSS (PRESERVATIVE FREE) 10 ML IV (08:08)
[2025-02-26] MEDS: PROTONIX IV 40 MG IV (08:08)
--- NOTE | 2025-02-26 08:28 | W.PN.GI.CBS2 ---
Addendum entered and electronically signed by Monica Maher MD 02/26/25 15:12:
I saw and examined the patient.
The REFINED SYRUP OPERATOR or PA's note was reviewed and I agree with the note.
Comment:
Pt with A history of duodenal cancer with obstruction who had chemo and during this admission had duodenal stent placed. She is able to tolerate liquids. She has had dark stool several times today.
abd: soft, nontender
impression:
duodenal cancer
anemia
plan:
1. follow hgb and if drops further or evidence of bleeding will need to stop heparin
2. change PPI to ggt
3. f/u oncology
4 continue clears
Original Note:
Today's Communication / Plan
-
Etiology of gastric outlet with concern for obstruction from know duodenal lesion-- progressively worsening symptoms
s/p enteral stent placement 02/25 with EGD
NGT now out
reviewed diet with patient and family will proceed with clear liquids no reds t/c pureed as next step later today vs tomorrow-- enteral stent diet handout given to pt, family and nursing staff
pt with continued drop in hbg-- heparin was restarted then stopped this am with hbg 6.6 -- pt was transfused prior to admission may be effect of recent chemo
no current signs of active GI bleeding stools brown 02/25 no stools overnight with normal BUN
from GI standpoint if no signs of GI bleeding ok to proceed with restart of heparin gtt-- I reviewed with Dr. Kyle this am plan to repeat hbg after transfusion and decide on heparin gtt
slight improved LFT's-- hx know hepatic mets
cont to trend
family updated- reviewed signs and symptoms of stent occlusion, family also reviewed with Dr. Dominguez staff 02/25
Assessment / Plan
-
Pt is a 54yo with hx breast CA with prior lumpectomy and XRT and recently diagnosed duodenal adeno CA and anemia with recent transfusion. She recently started chemo at [place] with Dr. Dominguez. She now presents with abdominal pain and distention
that has been worsening over time with wt loss and limited oral intakes. CT on admission with concern for gastric outlet obstruction. Also noted b/l PE and pt was placed on heparin. Asked to see for duodenal obstruction. In review with patient
and family had EGD at [facility] in October with inability to pass scope. She had delay with getting appt at [place] but had work up as below since end of December. She has been living on egg, yogurt and shakes and now with increased bloating and
difficulty eating. Wt loss 8-10 lbs since October. 02/25 s/p enteral stent placement after review with Dr. Dominguez from [place]. Some persistent anemia since admission requiring transfusion
02/25/25 Fernández- Normal esophagus. An acquired malignant-appearing, intrinsic severe stenosis was found in
the first portion of the duodenum and was non-traversed. This was stented with a 22 mm x 6 cm WallFlex stent under fluoroscopic guidance.
- A large amount of food (residue) in the stomach.
- Acquired duodenal stenosis. Prosthesis placed.
- No specimens collected.
-concern for gastric outlet obstruction with known metastatic duodenal adenoma with mets
-current chemo last 02/18 (FOLFIRINOX)
-new PE with Heparin use during admission
-anemia with recent transfusion prior to admission
-breast CA with prior lumpectomy/XRT
-increased LFT's with liver mets
-wt loss
PLAN:
Etiology of gastric outlet with concern for obstruction from know duodenal lesion-- progressively worsening symptoms
s/p enteral stent placement 02/25 with EGD
reviewed diet with patient and family will proceed with clear liquids no reds t/c pureed as next step later today vs tomorrow-- enteral stent diet handout given to pt, family and nursing staff
pt with continued drop in hbg-- heparin was restarted then stopped this am with hbg 6.6 -- pt was transfused prior to admission may be effect of recent chemo
no current signs of active GI bleeding stools brown 6/5 no stools overnight with normal BUN
from GI standpoint if no signs of GI bleeding ok to proceed with restart of heparin gtt-- I reviewed with Dr. Kyle this am plan to repeat hbg after transfusion and decide on heparin gtt
slight improved LFT's-- hx know hepatic mets
cont to trend
family updated
-
Subjective
Subjective
Date of Service: February 26, 2025
/ brown liquid stool no stools overnight NPO minimal discomfort and feeling well
Objective
Data Reviewed
Laboratory Data:
Laboratory Results
02/26/25 04:42
Laboratory Results
PT 14.8 Sec (11.4-14.6) H 02/25/25 09:38
INR 1.11 02/25/25 09:38
APTT 65.9 Sec (23.4-35.0) H 02/26/25 02:25
Total Bilirubin 0.5 mg/dl (0.2-1.3) 02/26/25 04:42
AST 49 U/L (14-36) H 02/26/25 04:42
ALT 80 U/L (0-35) H 02/26/25 04:42
Alkaline Phosphatase 314 U/L (38-126) H 02/26/25 04:42
Lipase 381 U/L (23-300) H 02/24/25 22:01
Vital Signs and I&O:
Vital Signs
Temp Pulse Resp BP Pulse Ox
98.6 F 94 19 110/68 95
02/26/25 08:02 02/26/25 08:02 02/26/25 08:02 02/26/25 08:02 02/26/25 04:00
I&O
02/25/25 02/26/25 02/27/25
06:59 06:59 06:59
Intake Total 1999 0 / 0
Balance 1999 0 / 0
Physical Exam
Physical Exam
HEENT: Anicteric and Moist mucous membranes
Cardiology: Normal Sinus Rhythm
Pulmonary: Clear
GI: Soft, Non Distended and Non Tender
Extremities: No Edema
Neuro: Non Focal
--- NOTE | 2025-02-26 08:55 | W.PN.HOSP.TC ---
Today's Communication/Plan
-
Continue heparin drip.
Monitor hemoglobin.
Advance diet as tolerated
Assessment / Plan
Assessment / Plan
Impression:
Patient is a pleasant 54 years old with history of breast cancer with prior lumpectomy and XRT and recently diagnosed duodenal adeno CA and anemia with recent transfusion. She recently started chemo at [place] with Dr. Dominguez. Patient presented to
[facility] with abdominal pain and distention that has been worsening over time with wt loss and limited oral intakes.
CT scan on admission with concern for gastric outlet obstruction status post NGT
GI consulted and patient underwent EGD on 02/25 with enteral stent placement.
NG tube removed.
Patient also had bilateral pulmonary embolism and started on heparin drip.
02/26
Hemoglobin dropped to 6.6, heparin drip held and patient received 1 unit of blood transfusion.
Repeat hemoglobin 8.3.
Heparin drip resumed
Assessment/plan:
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
Gastric Outlet Obstruction secondary to the above
- NG placed in the ED for decompression with significant improvement in distention/discomfort.
- Ice chips/sips for comfort. Supportive care/antiemetics.
- I discussed possible transfer with her Oncologist Dr. Herbie Will; he would suggest EGD/Stenting at and if no success, can pursue transfer to [facility].
- GI evaluation; plan for EGD/Stent this afternoon.
- most recent chemo last (FOLFIRINOX).
02/26
Clear liquid diet, advance as tolerated
Bilateral Pulmonary Emboli
- Multiple, bilateral, subsegmental lesions seen on CTA.
- Likely secondary hypercoagulability of malignancy.
- Pos SOB. No chest pain.
- IV heparin started.
- Check Echo.
- Transition to OAC v Lovenox prior to discharge.
- Follow for any new chest pain, worsening dyspnea, etc.
02/26
Heparin drip held for drop in hemoglobin.
Resumed
Microcytic Anemia
- Hemoglobin dropped to 6.6, status post blood transfusion
- Patient with history of microcytic anemia and received blood transfusion during / after chemo.
- Hemoglobin improved to 8.3, heparin drip resumed
CODE STATUS: Full code
DVT prophylaxis: Heparin drip
Diet: Clear liquid diet
Total time spent on today's encounter was 65 minutes which included time spent in counseling the patient/family regarding diagnosis and treatment plan as listed above, goals of care, and symptom management. Case was discussed with nursing staff,
specialists, and care coordinators/case management. All labs and imaging personally reviewed by me. Remainder the time spent in detailed review of previous records, lab data, imaging, and other medical provider documentation.
Anticipated Discharge: > 48 hours
Subjective/Interval History
-
Date of Service: February 26, 2025
Patient seen and examined at bedside, sister at bedside.
Denies any chest pain or shortness of breath, no abdominal pain, no nausea, no vomiting, no diarrhea or constipation.
Repeat hemoglobin improved to 8.3, heparin drip restarted.
Objective Data
-
Labs:
Laboratory Results
02/26/25 02/26/25 02/26/25
02:25 04:42 09:00
WBC 4.2 L
Hgb 6.6 L*
Hct 21.2 L
Plt Count 151
APTT 65.9 H Pending
Sodium 139
Potassium 3.8
Chloride 106
Carbon Dioxide 25
BUN 7
Creatinine 0.5 L
Glucose 83
Calcium 8.1 L
Total Bilirubin 0.5
AST 49 H
ALT 80 H
Alkaline Phosphatase 314 H
02/26/25 02/26/25
12:00 18:00
WBC
Hgb Pending Pending
Hct Pending Pending
Plt Count
APTT
Sodium
Potassium
Chloride
Carbon Dioxide
BUN
Creatinine
Glucose
Calcium
Total Bilirubin
AST
ALT
Alkaline Phosphatase
Vital Signs:
Vital Signs
Temp Pulse Resp BP Pulse Ox
98.6 F 93 18 110/68 95
02/26/25 08:02 02/26/25 08:03 02/26/25 08:03 02/26/25 08:03 02/26/25 08:03
I&O
02/25/25 02/26/25 02/27/25
06:59 06:59 06:59
Intake Total 1999 2160 / 2160 240 / 240
Balance 1999 2160 / 2160 240 / 240
Physical Exam
-
General: No Apparent Distress, Comfortable and Other (Looks tired)
HEENT: Normocephalic, Atraumatic, Moist Mucous Membranes, No Ptosis, PERRLA and Nose Appears Normal
Respiratory: Clear to Auscultation and Non Labored Respirations
Cardiac: Regular Rhythm and S1/S2
Breast: Deferred by me
GI: Soft, Nontender, Nondistended and Normal Bowel Sounds
Genito-urinary: No Costovertebral Tender
Musculoskeletal: No Clubbing, No Cyanosis and No Edema
Skin: Warm
Neuro: Awake, Alert, Oriented, AO x 3 and No Motor Deficits
Psych: Calm
Data Reviewed
-
Diagnostic Radiology: Image personally visualized and interpreted and Report Reviewed by me
CT Scan: Image personally visualized and interpreted and Report Reviewed by me
Ultrasound: Image personally visualized and interpreted and Report Reviewed by me
MRI: Image personally visualized and interpreted and Report Reviewed by me
Medical Tests (Nuc Med, Echo etc): Image personally visualized and interpreted and Report Reviewed by me
Labs: Labs Reviewed by me
Old Records: Reviewed
--- NOTE | 2025-02-26 10:56 | PTCARENOTE ---
Unit of PRBC's transfused. Pt tolerated well. Sister at bedside, updated on POC.
[2025-02-26] MEDS: LR 1000 IV ×2 (11:31→21:29)
[2025-02-26] MEDS: LR IV (11:31)
[2025-02-26 11:59] LABS: Hematocrit 25.6 % (37.0-47.0); Hemoglobin 8.3 g/dL (12.0-16.0)
[2025-02-26] MEDS: HEPARIN 25000 UNITS/250 ML IV (12:43)
--- NOTE | 2025-02-26 13:43 | PTCARENOTE ---
Heparin gtt resumed per orders, see MAR and intervention.
--- NOTE | 2025-02-26 13:45 | PTCARENOTE ---
Assessment and care as documented. Tolerating CLD well. Family at bedside, updated on plan of care. Ringing appropriately, call torre within reach.
[2025-02-26] MEDS: PROTONIX 100 IV (15:34)
[2025-02-26 19:03] LABS: Hematocrit 24.5 % (37.0-47.0); Hemoglobin 8.1 g/dL (12.0-16.0)
[2025-02-26] MEDS: HEPARIN 4500 UNITS IV (19:52)
[2025-02-26] MEDS: XANAX 1 MG PO (22:26)
[2025-02-27] VITALS (13 sets, daily range): BP systolic 84–122; BP diastolic 52–75; BMI 19.8
[2025-02-27] MEDS: PROTONIX 100 IV ×3 (00:50→20:40)
[2025-02-27 02:54] LABS: APTT 94.3 Sec (23.4-35.0); Hematocrit 23.3 % (37.0-47.0); Hemoglobin 7.6 g/dL (12.0-16.0); Mean Corp Hgb Conc. 32.6 g/dL (33.0-37.0); Mean Corpuscular Hgb 25.5 pg (27.0-31.0); Mean Corpuscular Volume 78.2 fL (81.0-99.0); Mean Platelet Volume 10.1 fL (7.4-10.4); Platelet Count 182 10^3/uL (130-400); Red Blood Cell Count 2.98 10^6/uL (4.20-5.40); Red Cell Dist. Width 16.7 % (11.5-14.5); White Blood Cell Count 3.5 10^3/uL (4.8-10.8)
[2025-02-27 03:23] LABS: ALT (SGPT) 58 U/L (0-35); AST (SGOT) 42 U/L (14-36); Albumin 2.6 g/dl (3.5-5.0); Alkaline Phosphatase 258 U/L (38-126); Blood Urea Nitrogen 3 mg/dl (7-17); Calcium 7.6 mg/dl (8.4-10.2); Carbon Dioxide 26 mmol/L (22-30); Chloride 111 mmol/L (98-107); Estimated Creatinine Clearance 89 ml/min; Glucose 96 mg/dl (70-99); Potassium 3.6 mmol/L (3.5-5.1); Sodium 141 mmol/L (135-145); Total Bilirubin 0.4 mg/dl (0.2-1.3); Total Protein 4.6 g/dl (6.3-8.2); eGFR > 60.00
[2025-02-27] MEDS: HEPARIN 25000 UNITS/250 ML IV ×2 (06:38→21:25)
[2025-02-27] MEDS: ZOFRAN 4 MG IV (06:39)
[2025-02-27] MEDS: LR 1000 IV ×2 (06:39→17:37)
[2025-02-27] MEDS: NSS (PRESERVATIVE FREE) IV (09:12)
[2025-02-27 09:40] LABS: Hematocrit 26.2 % (37.0-47.0); Hemoglobin 8.3 g/dL (12.0-16.0)
[2025-02-27 09:57] LABS: APTT 58.7 Sec (23.4-35.0)
[2025-02-27] MEDS: HEPARIN 4500 UNITS IV (11:26)
--- NOTE | 2025-02-27 13:36 | W.PN.HOSP.TC ---
Today's Communication/Plan
-
Monitor hemoglobin
Advance diet
Assessment / Plan
Assessment / Plan
Impression:
Patient is a pleasant 54 years old with history of breast cancer with prior lumpectomy and XRT and recently diagnosed duodenal adeno CA and anemia with recent transfusion. She recently started chemo at [facility] with Dr. Dominguez. Patient presented to
[facility] with abdominal pain and distention that has been worsening over time with wt loss and limited oral intakes.
CT scan on admission with concern for gastric outlet obstruction status post NGT
GI consulted and patient underwent EGD on 02/25 with enteral stent placement.
NG tube removed.
Patient also had bilateral pulmonary embolism and started on heparin drip.
02/26
Hemoglobin dropped to 6.6, heparin drip held and patient received 1 unit of blood transfusion.
Repeat hemoglobin 8.3.
Heparin drip resumed.
02/27
Patient was diarrhea but otherwise hemoglobin remained stable.
Advance diet to pur�ed
Assessment/plan:
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
Gastric Outlet Obstruction secondary to the above
- NG placed in the ED for decompression with significant improvement in distention/discomfort.
- Ice chips/sips for comfort. Supportive care/antiemetics.
- I discussed possible transfer with her Oncologist Dr. Herbie Will; he would suggest EGD/Stenting at and if no success, can pursue transfer to [facility].
- GI evaluation; plan for EGD/Stent this afternoon.
- most recent chemo last (FOLFIRINOX).
02/26
Clear liquid diet, advance as tolerated
02/27
Advance diet to pur�ed
Bilateral Pulmonary Emboli
- Multiple, bilateral, subsegmental lesions seen on CTA.
- Likely secondary hypercoagulability of malignancy.
- Pos SOB. No chest pain.
- IV heparin started.
- Check Echo.
- Transition to OAC v Lovenox prior to discharge.
- Follow for any new chest pain, worsening dyspnea, etc.
02/26
Heparin drip held for drop in hemoglobin.
Resumed heparin.
03/28
Once patient tolerates diet and hemoglobin stable will switch to NOAC
Microcytic Anemia
- Hemoglobin dropped to 6.6, status post blood transfusion
- Patient with history of microcytic anemia and received blood transfusion during / after chemo.
- Hemoglobin improved to 8.3, heparin drip resumed
CODE STATUS: Full code
DVT prophylaxis: Heparin drip
Diet: Pureed diet
Family communication: Discussed with family multiple occasions including patient's sister at bedside, brother at bedside, parents at bedside.
Total time spent on today's encounter was 65 minutes which included time spent in counseling the patient/family regarding diagnosis and treatment plan as listed above, goals of care, and symptom management. Case was discussed with nursing staff,
specialists, and care coordinators/case management. All labs and imaging personally reviewed by me. Remainder the time spent in detailed review of previous records, lab data, imaging, and other medical provider documentation.
Anticipated Discharge: > 48 hours
Subjective/Interval History
-
Date of Service: February 27, 2025
Patient seen and examined at bedside, denies any chest pain or shortness of breath, still with diarrhea.
Hemoglobin 8.3.
Objective Data
-
Labs:
Laboratory Results
02/27/25 02/27/25 02/27/25
02:30 02:30 02:30
WBC 3.5 L
Hgb 7.6 L Cancelled
Hct 23.3 L Cancelled
Plt Count 182 D
APTT 94.3 H
Sodium 141
Potassium 3.6
Chloride 111 H
Carbon Dioxide 26
BUN 3 L
Creatinine 0.4 L
Glucose 96
Calcium 7.6 L
Total Bilirubin 0.4
AST 42 H
ALT 58 H
Alkaline Phosphatase 258 H
02/27/25 02/27/25
09:33 17:30
WBC
Hgb 8.3 L
Hct 26.2 L
Plt Count
APTT 58.7 H Pending
Sodium
Potassium
Chloride
Carbon Dioxide
BUN
Creatinine
Glucose
Calcium
Total Bilirubin
AST
ALT
Alkaline Phosphatase
Vital Signs:
Vital Signs
Temp Pulse Resp BP Pulse Ox
98.5 F 92 18 111/52 95
02/27/25 12:55 02/27/25 12:00 02/27/25 12:00 02/27/25 12:00 02/27/25 10:00
I&O
02/26/25 02/27/25 02/28/25
06:59 06:59 06:59
Intake Total 2160 / 2160 490 / 490
Balance 2160 / 2160 490 / 490
Physical Exam
-
General: No Apparent Distress, Comfortable and Other (Looks tired)
HEENT: Normocephalic, Atraumatic, Moist Mucous Membranes, No Ptosis, PERRLA and Nose Appears Normal
Respiratory: Clear to Auscultation and Non Labored Respirations
Cardiac: Regular Rhythm and S1/S2
Breast: Deferred by me
GI: Soft, Nontender, Nondistended and Normal Bowel Sounds
Genito-urinary: No Costovertebral Tender
Musculoskeletal: No Clubbing, No Cyanosis and No Edema
Skin: Warm
Neuro: Awake, Alert, Oriented, AO x 3 and No Motor Deficits
Psych: Calm
Data Reviewed
-
Diagnostic Radiology: Image personally visualized and interpreted and Report Reviewed by me
CT Scan: Image personally visualized and interpreted and Report Reviewed by me
Ultrasound: Image personally visualized and interpreted and Report Reviewed by me
MRI: Image personally visualized and interpreted and Report Reviewed by me
Medical Tests (Nuc Med, Echo etc): Image personally visualized and interpreted and Report Reviewed by me
Labs: Labs Reviewed by me
Old Records: Reviewed
--- NOTE | 2025-02-27 15:28 | W.PN.GI.CBS2 ---
Today's Communication / Plan
-
full liquids
monitor hgb
Assessment / Plan
-
Pt is a 54yo with hx breast CA with prior lumpectomy and XRT and recently diagnosed duodenal adeno CA and anemia with recent transfusion. She recently started chemo at [place] with Dr. Dominguez. She now presents with abdominal pain and distention
that has been worsening over time with wt loss and limited oral intakes. CT on admission with concern for gastric outlet obstruction. Also noted b/l PE and pt was placed on heparin. Asked to see for duodenal obstruction. In review with patient
and family had EGD at [facility] in October with inability to pass scope. She had delay with getting appt at [place] but had work up as below since end of December. She has been living on egg, yogurt and shakes and now with increased bloating and
difficulty eating. Wt loss 8-10 lbs since October. 02/25 s/p enteral stent placement after review with Dr. Dominguez from [place]. Some persistent anemia since admission requiring transfusion
02/25/25 Fernández- Normal esophagus. An acquired malignant-appearing, intrinsic severe stenosis was found in
the first portion of the duodenum and was non-traversed. This was stented with a 22 mm x 6 cm WallFlex stent under fluoroscopic guidance.
- A large amount of food (residue) in the stomach.
- Acquired duodenal stenosis. Prosthesis placed.
- No specimens collected.
-concern for gastric outlet obstruction with known metastatic duodenal adenoma with mets
-current chemo last 02/18 (FOLFIRINOX)
-new PE with Heparin use during admission
-anemia with recent transfusion prior to admission
-breast CA with prior lumpectomy/XRT
-increased LFT's with liver mets
-wt loss
PLAN:
advance diet
difficult position with likely ongoing subtle bleeding from duodenal lesion and need for anticoagulation
will add carafate, continue PPI ggt
if bleeding becomes more overt then will need to address anticoagulation
d/w pt and family
-
Subjective
Subjective
Date of Service: February 27, 2025
Pt with a hx of duodenal adenoca, PE on anticoagulation s/p stent, tolerated clears
Objective
Data Reviewed
Laboratory Data:
Laboratory Results
02/27/25 09:33
02/27/25 02:30
Laboratory Results
PT 14.8 Sec (11.4-14.6) H 02/25/25 09:38
INR 1.11 02/25/25 09:38
APTT 58.7 Sec (23.4-35.0) H 02/27/25 09:33
Total Bilirubin 0.4 mg/dl (0.2-1.3) 02/27/25 02:30
AST 42 U/L (14-36) H 02/27/25 02:30
ALT 58 U/L (0-35) H 02/27/25 02:30
Alkaline Phosphatase 258 U/L (38-126) H 02/27/25 02:30
Lipase 381 U/L (23-300) H 02/24/25 22:01
Vital Signs and I&O:
Vital Signs
Temp Pulse Resp BP Pulse Ox
98.5 F 92 18 111/52 95
02/27/25 12:55 02/27/25 12:00 02/27/25 12:00 02/27/25 12:00 02/27/25 10:00
I&O
02/26/25 02/27/25 02/28/25
06:59 06:59 06:59
Intake Total 2160 / 2160 490 / 490
Balance 2160 / 2160 490 / 490
Physical Exam
Physical Exam
GI: Soft and Non Distended
--- NOTE | 2025-02-27 17:20 | PTCARENOTE ---
Patient had loose stool that was hem test positive. Notified hospitalist and GI. Patient anxious and overwhelmed with medical condition and history of past trauma called Nurse into room crying. Emotional support provided. Order obtained for
xanax PRN. Patient diet advanced to full liquids. Appetite fair. Patient tolerated small amounts. Denied any N/V. Heparin drip,protonix and fluids infusing as ordered. Family in room at bedside.
[2025-02-27] MEDS: CARAFATE 1 GRAM PO ×2 (17:37→20:51)
[2025-02-27] MEDS: XANAX 0.5 MG PO (18:00)
[2025-02-28] VITALS (12 sets, daily range): BP systolic 94–143; BP diastolic 40–116; BMI 20.7
[2025-02-28 00:21] LABS: APTT 114.6 Sec (23.4-35.0)
[2025-02-28] MEDS: XANAX 0.5 MG PO ×3 (03:16→22:28)
[2025-02-28] MEDS: LR 1000 IV ×2 (03:40→13:48)
[2025-02-28 03:46] LABS: Hematocrit 23.1 % (37.0-47.0); Hemoglobin 7.4 g/dL (12.0-16.0); Mean Corpuscular Hgb 25.2 pg (27.0-31.0); Mean Corpuscular Volume 78.6 fL (81.0-99.0); Mean Platelet Volume 10.6 fL (7.4-10.4); Platelet Count 211 10^3/uL (130-400); Red Blood Cell Count 2.94 10^6/uL (4.20-5.40); Red Cell Dist. Width 17.3 % (11.5-14.5); White Blood Cell Count 3.3 10^3/uL (4.8-10.8)
[2025-02-28 04:34] LABS: ALT (SGPT) 55 U/L (0-35); AST (SGOT) 44 U/L (14-36); Albumin 2.4 g/dl (3.5-5.0); Alkaline Phosphatase 262 U/L (38-126); Blood Urea Nitrogen 2 mg/dl (7-17); Calcium 8.1 mg/dl (8.4-10.2); Carbon Dioxide 28 mmol/L (22-30); Chloride 108 mmol/L (98-107); Estimated Creatinine Clearance 89 ml/min; Glucose 100 mg/dl (70-99); Potassium 3.7 mmol/L (3.5-5.1); Sodium 138 mmol/L (135-145); Total Bilirubin 0.4 mg/dl (0.2-1.3); Total Protein 4.8 g/dl (6.3-8.2); eGFR > 60.00
[2025-02-28] MEDS: PROTONIX 100 IV ×2 (07:18→18:27)
[2025-02-28 07:31] LABS: APTT 100.1 Sec (23.4-35.0)
[2025-02-28] MEDS: CARAFATE 1 GRAM PO ×4 (08:12→20:46)
[2025-02-28] MEDS: NSS (PRESERVATIVE FREE) IV (08:12)
--- NOTE | 2025-02-28 09:13 | CON.ONC ---
Consultation
-
Date Consultation Requested: 02/28/25
Date Consultation Performed: 02/28/25
Requesting Provider: VICTOR MANUEL
Performing Provider: CHICHO
Reason for Consultation: ANEMIA
Impression
Impression
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
Stage 0 DCIS
anemia-- multifactorial
Plan
Plan
Causes for her anemia include a)tumor bleeding without iron deficiency-- b) anemia of inflammation secondary to mets-- c) chemosuppression of the marrow. Given lack of need for repeat transfusion since stenting while anticoagulated for PE indicates
that active bleeding unlikely. Would transfuse for indications of hgb <7gm/dl or symptoms. Check differential with subsequent labs. Will followup.
Patient History
History of Present Illness
54yo WF with hx of stage 4 adenocarcinoma of the duodenum with liver mets followed by Dr Herbie Bernal completed first cycle fluorouracil based therapy 10 days prior admitted with obstructive symptoms of bloating weight, loss weakness without nausea
though progressive post-prandial vomiting. She improved with ng tube decompression; 3rd postop day she underwent stenting of the duodenal mass with marked improvement in symptoms. CT scanning on admission noted bilateral pulmonary emboli for which
she required no supplemental oxygen need and she is currently on heparin drip. Innumerable hepatic mets were noted on enhanced liver scan w/ trace ascites w/ retroperitoneal adenopathy. She was transfused second day of admission for hgb 6.6 and
has maintained stable hgb >7.5gm/dl Results of FE panel noted lowe saturation with ferritin 191. SHe denies any overt GI or blood loss with anticoagulation
Past-Medical/Surgical History
Stage 0 DCIS breast cancer; anxiety;
Patient Medication
�Medication �Instructions �Recorded �Confirmed �Last Taken �Type
alprazolam 1 mg tablet 1 mg PO HSPRN PRN anxiety/sleep 02/26/25 02/26/25 Unknown History
pantoprazole 40 mg tablet,delayed 40 mg PO DAILY 02/26/25 Unknown History
release
trazodone 50 mg tablet 50 mg PO HS 02/26/25 Unknown History
Active Medications
Generic Name Dose Route Start Last Admin
Trade Name Freq PRN Reason Stop Dose Admin
Acetaminophen 650 mg 02/25/25 05:02
Acetaminophen 325 Mg Tablet PO 03/25/25 05:01
Q4HPRN PRN
Mild Pain / Temp > 101
Alprazolam 0.5 mg 02/27/25 17:23 02/28/25 03:16
Alprazolam 0.5 Mg Tablet PO 03/27/25 17:21 0.5 mg
Q6HPRN PRN Administration
anxiety
Benzocaine/Menthol 1 lozenge 02/25/25 08:53
Benzocaine/Menthol Lozenge PO 03/25/25 08:52
Q4HPRN PRN
throat irritation with NGT
Heparin Sodium 4,500 units 02/25/25 03:37 02/27/25 11:26
Heparin 80 Units/Kg Rebolus-Do Not Discard IV 03/25/25 03:36 4,500 units
PRN PRN Administration
PTT < OR = 64 seconds
Heparin Sodium 2,300 units 02/25/25 03:39
Heparin 40 Units/Kg Rebolus-Do Not Discard IV 03/25/25 03:38
PRN PRN
PTT = 64.1 to 72.9 seconds
Heparin Sodium (Porcine) 500 unit 02/25/25 08:45
Heparin Flush Pf (100 Unit/Ml) 5 Ml Syringe IV 03/25/25 08:44
PER PROTOCOL CHARIS
Hydromorphone HCl 0.5 mg 02/25/25 05:02
Hydromorphone 0.5 Mg/0.5 Ml Syringe IV 03/11/25 05:01
Q4HPRN PRN
Severe Pain
Pantoprazole Sodium 80 mg in 100 mls @ 10 mls/hr 02/26/25 14:45 02/28/25 07:18
Protonix IV 100 mls
Q10H CHARIS Administration
8 MG/HR
Heparin Sodium 25,000 units in 250 mls @ 0 mls/hr 02/27/25 21:00 02/27/25 21:25
Heparin 42698 Units/250 Ml IV 250 mls
PER PROTOCOL CHARIS Administration
Protocol
Per Protocol
Lactated Ringer's 1,000 mls @ 100 mls/hr 02/28/25 03:45 02/28/25 03:40
Lr IV 1,000 mls
.Q10H CHARIS Administration
Ondansetron HCl 4 mg 02/25/25 05:02 02/27/25 06:39
Ondansetron 4 Mg/2 Ml Vial IV 03/25/25 05:01 4 mg
Q6HPRN PRN Administration
nausea and vomiting
Phenol 0 spray 02/25/25 06:16
Chloraseptic (1.4% Phenol) Throat [place] PO 03/25/25 06:15
Q2HPRN PRN
sore throat
Sodium Chloride 0 flush 02/25/25 04:00
Sodium Chloride 0.9% (Flush) Syringe IV 03/25/25 03:59
PER PROTOCOL CHARIS
Sodium Chloride 10 ml 02/25/25 08:00 02/28/25 08:12
Sodium Chloride 0.9% (Preservative Free) 10 Ml Vial IV 03/25/25 07:59 Not Given
DAILY CHARIS
Sucralfate 1 gram 02/27/25 16:30 02/28/25 08:12
Sucralfate 1 Gram Tablet PO 03/27/25 16:29 1 gram
ACHS CHARIS Administration
Review of Systems
-
History Source: Patient and Family
All Other Systems: Reviewed and Negative
Physical Exam
-
General: No Apparent Distress
HEENT: Moist Mucous Membranes
Cardiology: Normal Sinus Rhythm
Pulmonary: Clear
GI: Soft and Distended
Musculoskeletal: No Clubbing, No Cyanosis and No Edema
Extremities: Pulses Present
Neurology: Non Focal
Skin: IV Access / Catheter Site (port site clear and nontender)
Psych: Anxious
Labs
Lab Results
WBC 3.3 10^3/uL (4.8-10.8) L 02/28/25 03:20
RBC 2.94 10^6/uL (4.20-5.40) L 02/28/25 03:20
Hgb 7.4 g/dL (12.0-16.0) L 02/28/25 03:20
Hct 23.1 % (37.0-47.0) L 02/28/25 03:20
MCV 78.6 fL (81.0-99.0) L 02/28/25 03:20
MCH 25.2 pg (27.0-31.0) L 02/28/25 03:20
MCHC 32.0 g/dL (33.0-37.0) L 02/28/25 03:20
RDW 17.3 % (11.5-14.5) H 02/28/25 03:20
Plt Count 211 10^3/uL (130-400) 02/28/25 03:20
MPV 10.6 fL (7.4-10.4) H 02/28/25 03:20
Abs Immat Gran (auto) 0.1 10^3/uL (0-0.05) H 02/24/25 22:01
Absolute Neuts (auto) 4.5 10^3/uL (1.4-6.5) 02/24/25 22:01
Absolute Lymphs (auto) 0.9 10^3/uL (1.2-3.4) L 02/24/25 22:01
Absolute Monos (auto) 0.2 10^3/uL (0.1-0.6) 02/24/25 22:01
Absolute Eos (auto) 0.1 10^3/uL (0-0.7) 02/24/25 22:01
Absolute Basos (auto) 0.0 10^3/uL (0-0.2) 02/24/25 22:01
Immature Gran % 0.9 % (0-0.5) H 02/24/25 22:01
Neutrophils % 77.7 % (42.2-75.2) H 02/24/25 22:01
Lymphocytes % 15.9 % (20.5-51.1) L 02/24/25 22:01
Monocytes % 3.6 % (1.7-9.3) 02/24/25 22:01
Eosinophils % 1.7 % (0-6) 02/24/25 22:01
Basophils % 0.2 % (0-2) 02/24/25 22:01
Creatinine 0.4 mg/dL (0.6-1.0) L 02/28/25 03:20
Vital Signs
Vital Signs
Temp Pulse Resp BP Pulse Ox
98.7 F 84 24 108/64 98
02/28/25 07:15 02/28/25 06:00 02/28/25 06:00 02/28/25 06:00 02/27/25 18:00
--- NOTE | 2025-02-28 12:45 | W.PN.GI.CBS2 ---
Today's Communication / Plan
-
oncology
PPI, carafate
Assessment / Plan
-
Pt is a 54yo with hx breast CA with prior lumpectomy and XRT and recently diagnosed duodenal adeno CA and anemia with recent transfusion. She recently started chemo at [place] with Dr. Dominguez. She now presents with abdominal pain and distention
that has been worsening over time with wt loss and limited oral intakes. CT on admission with concern for gastric outlet obstruction. Also noted b/l PE and pt was placed on heparin. Asked to see for duodenal obstruction. In review with patient
and family had EGD at [facility] in October with inability to pass scope. She had delay with getting appt at [place] but had work up as below since end of December. She has been living on egg, yogurt and shakes and now with increased bloating and
difficulty eating. Wt loss 8-10 lbs since October. 02/25 s/p enteral stent placement after review with Dr. Dominguez from [place]. Some persistent anemia since admission requiring transfusion
02/25/25 Fernández- Normal esophagus. An acquired malignant-appearing, intrinsic severe stenosis was found in
the first portion of the duodenum and was non-traversed. This was stented with a 22 mm x 6 cm WallFlex stent under fluoroscopic guidance.
- A large amount of food (residue) in the stomach.
- Acquired duodenal stenosis. Prosthesis placed.
- No specimens collected.
-concern for gastric outlet obstruction with known metastatic duodenal adenoma with mets
-current chemo last 02/18 (FOLFIRINOX)
-new PE with Heparin use during admission
-anemia with recent transfusion prior to admission
-breast CA with prior lumpectomy/XRT
-increased LFT's with liver mets
-wt loss
PLAN:
-continue stent diet (obstruction relieved)
-hgb continues to intermittently trend down. Difficult position as luminal cancer with stent which will intermittently ooze as she is on anticoagulation for PE. no easy solution, if anticoagulation can't be stopped will likely need transfusions as
outpatient. recommend input by oncology
-PPI and carafate
d/w Dr. Ordoñez
-
Subjective
Subjective
Date of Service: February 28, 2025
Pt able to tolerate stent diet. has loose stool but eating ice cream
Objective
Data Reviewed
Laboratory Data:
Laboratory Results
02/28/25 03:20
Laboratory Results
PT 14.8 Sec (11.4-14.6) H 02/25/25 09:38
INR 1.11 02/25/25 09:38
APTT 100.1 Sec (23.4-35.0) H 02/28/25 07:10
Total Bilirubin 0.4 mg/dl (0.2-1.3) 02/28/25 03:20
AST 44 U/L (14-36) H 02/28/25 03:20
ALT 55 U/L (0-35) H 02/28/25 03:20
Alkaline Phosphatase 262 U/L (38-126) H 02/28/25 03:20
Lipase 381 U/L (23-300) H 02/24/25 22:01
Vital Signs and I&O:
Vital Signs
Temp Pulse Resp BP Pulse Ox
97.8 F 84 24 108/64 98
02/28/25 12:13 02/28/25 06:00 02/28/25 06:00 02/28/25 06:00 02/27/25 18:00
I&O
02/27/25 02/28/25 03/01/25
06:59 06:59 06:59
Intake Total 490 / 490 2435 / 2435
Balance 490 / 490 2435 / 2435
Physical Exam
Physical Exam
GI: Soft and Non Tender
Neuro: Non Focal
[2025-02-28] MEDS: HEPARIN 25000 UNITS/250 ML IV (13:31)
[2025-02-28] MEDS: ZOFRAN 4 MG IV (13:48)
[2025-02-28 13:55] LABS: Hematocrit 26.4 % (37.0-47.0); Hemoglobin 8.6 g/dL (12.0-16.0)
--- NOTE | 2025-02-28 13:55 | W.PN.HOSP.TC ---
Today's Communication/Plan
-
Continue to monitor hemoglobin.
Consider switching heparin to Lovenox.
Oncology consult.
If hemoglobin stable on Lovenox consider discharge home tomorrow.
Physical therapy consult
Assessment / Plan
Assessment / Plan
Impression:
Patient is a pleasant 54 years old with history of breast cancer with prior lumpectomy and XRT and recently diagnosed duodenal adeno CA and anemia with recent transfusion. She recently started chemo at [place] with Dr. Dominguez. Patient presented to
[facility] with abdominal pain and distention that has been worsening over time with wt loss and limited oral intakes.
CT scan on admission with concern for gastric outlet obstruction status post NGT
GI consulted and patient underwent EGD on 02/25 with enteral stent placement.
NG tube removed.
Patient also had bilateral pulmonary embolism and started on heparin drip.
02/26
Hemoglobin dropped to 6.6, heparin drip held and patient received 1 unit of blood transfusion.
Repeat hemoglobin 8.3.
Heparin drip resumed.
02/27
Patient was diarrhea but otherwise hemoglobin remained stable.
Advance diet to pur�ed
02/28
Hemoglobin dropped to 7 point 4 in the morning now 8.6.
Oncology consult
Assessment/plan:
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
Gastric Outlet Obstruction secondary to the above
- NG placed in the ED for decompression with significant improvement in distention/discomfort.
- Ice chips/sips for comfort. Supportive care/antiemetics.
- I discussed possible transfer with her Oncologist Dr. Herbie Will; he would suggest EGD/Stenting at and if no success, can pursue transfer to [place].
- GI evaluation; plan for EGD/Stent this afternoon.
- most recent chemo last (FOLFIRINOX).
02/26
Clear liquid diet, advance as tolerated
02/27
Advance diet to pur�ed
02/28
Hemoglobin dropped to 7.4 in the morning now 8.6.
Oncology consulted
Bilateral Pulmonary Emboli
- Multiple, bilateral, subsegmental lesions seen on CTA.
- Likely secondary hypercoagulability of malignancy.
- Pos SOB. No chest pain.
- IV heparin started.
- Check Echo.
- Transition to OAC v Lovenox prior to discharge.
- Follow for any new chest pain, worsening dyspnea, etc.
02/26
Heparin drip held for drop in hemoglobin.
Resumed heparin.
03/28
Once patient tolerates diet and hemoglobin stable will switch to NOAC
02/28
Hematology consult pending
will Consider Lovenox
Microcytic Anemia
- Hemoglobin dropped to 6.6, status post blood transfusion
- Patient with history of microcytic anemia and received blood transfusion during / after chemo.
- Hemoglobin improved to 8.3, heparin drip resumed
CODE STATUS: Full code
DVT prophylaxis: Heparin drip
Diet: Pureed diet
Family communication: Discussed with family multiple occasions including patient's sister at bedside, brother at bedside, parents at bedside.
Disposition: Oncology consult
Total time spent on today's encounter was 65 minutes which included time spent in counseling the patient/family regarding diagnosis and treatment plan as listed above, goals of care, and symptom management. Case was discussed with nursing staff,
specialists, and care coordinators/case management. All labs and imaging personally reviewed by me. Remainder the time spent in detailed review of previous records, lab data, imaging, and other medical provider documentation.
Anticipated Discharge: Within 24 hours
Subjective/Interval History
-
Date of Service: February 28, 2025
Patient seen and examined at bedside, denies any chest pain or shortness of breath,
Hemoglobin dropped to 7.4 in the morning but back to 8.6
Objective Data
-
Labs:
Laboratory Results
0602/28/25 02/28/25
03:20 07:10 13:46
WBC 3.3 L
Hgb 7.4 L 8.6 L
Hct 23.1 L 26.4 L
Plt Count 211
APTT 100.1 H Pending
Sodium 138
Potassium 3.7
Chloride 108 H
Carbon Dioxide 28
BUN 2 L
Creatinine 0.4 L
Glucose 100 H
Calcium 8.1 L
Total Bilirubin 0.4
AST 44 H
ALT 55 H
Alkaline Phosphatase 262 H
Vital Signs:
Vital Signs
Temp Pulse Resp BP Pulse Ox
97.8 F 84 24 108/64 98
02/28/25 12:13 02/28/25 06:00 02/28/25 06:00 02/28/25 06:00 02/27/25 18:00
I&O
02/27/25 02/28/25 03/01/25
06:59 06:59 06:59
Intake Total 490 / 490 2435 / 2435
Balance 490 / 490 2435 / 2435
Physical Exam
-
General: No Apparent Distress, Comfortable and Other (Looks tired)
HEENT: Normocephalic, Atraumatic, Moist Mucous Membranes, No Ptosis, PERRLA and Nose Appears Normal
Respiratory: Clear to Auscultation and Non Labored Respirations
Cardiac: Regular Rhythm and S1/S2
Breast: Deferred by me
GI: Soft, Nontender, Nondistended and Normal Bowel Sounds
Genito-urinary: No Costovertebral Tender
Musculoskeletal: No Clubbing, No Cyanosis and No Edema
Skin: Warm
Neuro: Awake, Alert, Oriented, AO x 3 and No Motor Deficits
Psych: Calm
Data Reviewed
-
Diagnostic Radiology: Image personally visualized and interpreted and Report Reviewed by me
CT Scan: Image personally visualized and interpreted and Report Reviewed by me
Ultrasound: Image personally visualized and interpreted and Report Reviewed by me
MRI: Image personally visualized and interpreted and Report Reviewed by me
Medical Tests (Nuc Med, Echo etc): Image personally visualized and interpreted and Report Reviewed by me
Labs: Labs Reviewed by me
Old Records: Reviewed
[2025-02-28 14:05] LABS: APTT 77.3 Sec (23.4-35.0)
[2025-02-28] MEDS: TYLENOL 650 MG PO (17:33)
--- NOTE | 2025-02-28 17:48 | PTCARENOTE ---
Assumed care of pt this am, she maurice boris alert and oriented throughout the shift. Emotional at times, tearful and fearful of health situation. She has multiple family members who appear supportive and she has had a visitor at all times today. Pt OOb
to chair and tolerating for hours. Gait slow, cautious and steady. SBO in 90s at times but pt is asymptomatic. Lungs clear and pulse ox checks all in >92%. Pt diet increased from fulls to soft. Pt tolerated 1/2 of her ensure and reports it triggers
nausea as she was drinking these products prior to admission with obstruction, Zofran given and effective. Pt then tolerated pureed soup and fluids. Abd slightly distended with hyperactive bowel tones. Bowel movements missed hat so unable to heme
test. Stools are soft and formed and pt reports this is improved from yesterday's loose stools. Pt heparin gtt therapeutic range this afternoon. Pt transitioning to Lovenox injections and is reporting anxiety about this and is unable to self inject
herself. Pt is in the process of discussing with family who might be willing to administer the injections daily. Lovenox education packet provided to pt and pt's sister
[2025-02-28] MEDS: LOVENOX 80 MG SC (18:28)
[2025-03-01] VITALS (12 sets, daily range): BP systolic 97–157; BP diastolic 56–139; PULSE 94; BMI 21.0
[2025-03-01] MEDS: LR 1000 IV (01:46)
--- NOTE | 2025-03-01 02:18 | PTCARENOTE ---
Received pt at change of shift. Pt c/o of feeling 'puffy' today in her legs and is attempting to move her legs more to get fluid moving. Requested a decrease in IVF as pt is starting to drink more on her own. 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
100 ml/hr to 75 ml/hr. Trace edema evident in lower extremties. Resting in bed with call torre in reach.
[2025-03-01] MEDS: PROTONIX 100 IV (04:04)
[2025-03-01 04:32] LABS: Hematocrit 22.6 % (37.0-47.0); Hemoglobin 7.3 g/dL (12.0-16.0); Mean Corp Hgb Conc. 32.3 g/dL (33.0-37.0); Mean Corpuscular Hgb 25.5 pg (27.0-31.0); Mean Platelet Volume 10.9 fL (7.4-10.4); Platelet Count 247 10^3/uL (130-400); Red Blood Cell Count 2.86 10^6/uL (4.20-5.40); White Blood Cell Count 2.6 10^3/uL (4.8-10.8)
[2025-03-01 04:39] LABS: Blood Urea Nitrogen 3 mg/dl (7-17); Calcium 8.3 mg/dl (8.4-10.2); Carbon Dioxide 30 mmol/L (22-30); Chloride 108 mmol/L (98-107); Estimated Creatinine Clearance 93 ml/min; Glucose 98 mg/dl (70-99); Potassium 3.6 mmol/L (3.5-5.1); Sodium 139 mmol/L (135-145); eGFR > 60.00
[2025-03-01] MEDS: CARAFATE 1 GRAM PO ×2 (08:50→12:56)
[2025-03-01] MEDS: NSS (PRESERVATIVE FREE) IV (09:03)
[2025-03-01] MEDS: XANAX 0.5 MG PO (09:25)
[2025-03-01 12:15] LABS: Hematocrit 25.6 % (37.0-47.0)
--- NOTE | 2025-03-01 13:36 | W.PN.HOSP.TC ---
Today's Communication/Plan
-
Discharge home today
Assessment / Plan
Assessment / Plan
Impression:
Patient is a pleasant 54 years old with history of breast cancer with prior lumpectomy and XRT and recently diagnosed duodenal adeno CA and anemia with recent transfusion. She recently started chemo at [place] with Dr. Dominguez. Patient presented to
[facility] with abdominal pain and distention that has been worsening over time with wt loss and limited oral intakes.
CT scan on admission with concern for gastric outlet obstruction status post NGT
GI consulted and patient underwent EGD on 02/25 with enteral stent placement.
NG tube removed.
Patient also had bilateral pulmonary embolism and started on heparin drip.
02/26
Hemoglobin dropped to 6.6, heparin drip held and patient received 1 unit of blood transfusion.
Repeat hemoglobin 8.3.
Heparin drip resumed.
02/27
Patient was diarrhea but otherwise hemoglobin remained stable.
Advance diet to pur�ed
02/28
Hemoglobin dropped to 7 point 4 in the morning now 8.6.
Oncology consult
03/01
Lovenox started and hemoglobin remains stable
Plan to discharge home with Lovenox.
Assessment/plan:
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
Gastric Outlet Obstruction secondary to the above
- NG placed in the ED for decompression with significant improvement in distention/discomfort.
- Ice chips/sips for comfort. Supportive care/antiemetics.
- I discussed possible transfer with her Oncologist Dr. Herbie Will; he would suggest EGD/Stenting at and if no success, can pursue transfer to [place].
- GI evaluation; plan for EGD/Stent this afternoon.
- most recent chemo last (FOLFIRINOX).
02/26
Clear liquid diet, advance as tolerated
02/27
Advance diet to pur�ed
02/28
Hemoglobin dropped to 7.4 in the morning now 8.6.
Oncology consulted.
03/01
Globin dropped to 7.3 then repeat 8.0
Bilateral Pulmonary Emboli
- Multiple, bilateral, subsegmental lesions seen on CTA.
- Likely secondary hypercoagulability of malignancy.
- Pos SOB. No chest pain.
- IV heparin started.
- Check Echo.
- Transition to OAC v Lovenox prior to discharge.
- Follow for any new chest pain, worsening dyspnea, etc.
02/26
Heparin drip held for drop in hemoglobin.
Resumed heparin.
03/28
Once patient tolerates diet and hemoglobin stable will switch to NOAC
02/28
Hematology consult pending
will Consider Lovenox
03/01
Lovenox started and hemoglobin remains stable
Plan to discharge home with Lovenox.
Microcytic Anemia
- Hemoglobin dropped to 6.6, status post blood transfusion
- Patient with history of microcytic anemia and received blood transfusion during / after chemo.
- Hemoglobin improved to 8.3, heparin drip resumed
03/01
Hemoglobin stable
CODE STATUS: Full code
DVT prophylaxis: Heparin drip
Diet: Soft diet
Family communication: Discussed with family multiple occasions including patient's sister at bedside, brother at bedside, parents at bedside.
Disposition: Discharge home today
Total time spent on today's encounter was 65 minutes which included time spent in counseling the patient/family regarding diagnosis and treatment plan as listed above, goals of care, and symptom management. Case was discussed with nursing staff,
specialists, and care coordinators/case management. All labs and imaging personally reviewed by me. Remainder the time spent in detailed review of previous records, lab data, imaging, and other medical provider documentation.
Anticipated Discharge: Today
Subjective/Interval History
-
Date of Service: March 01, 2025
Patient seen and examined at bedside, family at bedside, denies any chest pain or shortness of breath, tolerating diet, hemoglobin dropped in a.m. but repeat hemoglobin 8.0
Will be discharged on lovenox.
Objective Data
-
Labs:
Laboratory Results
03/01/25 03/01/25
04:08 11:56
WBC 2.6 L
Hgb 7.3 L 8.0 L
Hct 22.6 L 25.6 L
Plt Count 247
Sodium 139
Potassium 3.6
Chloride 108 H
Carbon Dioxide 30
BUN 3 L
Creatinine 0.4 L
Glucose 98
Calcium 8.3 L
Vital Signs:
Vital Signs
Temp Pulse Resp BP Pulse Ox
98.2 F 90 18 104/59 97
03/01/25 03:04 03/01/25 12:00 03/01/25 12:00 03/01/25 12:00 02/28/25 16:11
I&O
02/28/25 03/01/25 03/02/25
06:59 06:59 06:59
Intake Total 2435 / 2435 2232 / 2232
Balance 2435 / 2435 2232 / 2232
Physical Exam
-
General: No Apparent Distress, Comfortable and Other (Looks tired)
HEENT: Normocephalic, Atraumatic, Moist Mucous Membranes, No Ptosis, PERRLA and Nose Appears Normal
Respiratory: Clear to Auscultation and Non Labored Respirations
Cardiac: Regular Rhythm and S1/S2
Breast: Deferred by me
GI: Soft, Nontender, Nondistended and Normal Bowel Sounds
Genito-urinary: No Costovertebral Tender
Musculoskeletal: No Clubbing, No Cyanosis and No Edema
Skin: Warm
Neuro: Awake, Alert, Oriented, AO x 3 and No Motor Deficits
Psych: Calm
Data Reviewed
-
Diagnostic Radiology: Image personally visualized and interpreted and Report Reviewed by me
CT Scan: Image personally visualized and interpreted and Report Reviewed by me
Ultrasound: Image personally visualized and interpreted and Report Reviewed by me
MRI: Image personally visualized and interpreted and Report Reviewed by me
Medical Tests (Nuc Med, Echo etc): Image personally visualized and interpreted and Report Reviewed by me
Labs: Labs Reviewed by me
Old Records: Reviewed
--- NOTE | 2025-03-01 13:39 | W.DCSUMMARY ---
Discharge Summary
Discharge Data
Date of Admission: 02/25/25
Date of Discharge: 03/01/25
-
Pending Results: No
Hospital Course
Hospital course
Patient is a pleasant 54 years old with history of breast cancer with prior lumpectomy and XRT and recently diagnosed duodenal adeno CA and anemia with recent transfusion. She recently started chemo at [place] with Dr. Dominguez. Patient presented to
[facility] with abdominal pain and distention that has been worsening over time with wt loss and limited oral intakes.
CT scan on admission with concern for gastric outlet obstruction status post NGT
GI consulted and patient underwent EGD on 02/25 with enteral stent placement.
NG tube removed.
Patient also had bilateral pulmonary embolism and started on heparin drip.
02/26
Hemoglobin dropped to 6.6, heparin drip held and patient received 1 unit of blood transfusion.
Repeat hemoglobin 8.3.
Heparin drip resumed.
02/27
Patient was diarrhea but otherwise hemoglobin remained stable.
Advance diet to pur�ed
02/28
Hemoglobin dropped to 7 point 4 in the morning now 8.6.
Oncology consult
03/01
Lovenox started and hemoglobin remains stable
Plan to discharge home with Lovenox.
During hospitalization patient was treated from the following
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
Gastric Outlet Obstruction secondary to the above
- NG placed in the ED for decompression with significant improvement in distention/discomfort.
- Ice chips/sips for comfort. Supportive care/antiemetics.
- I discussed possible transfer with her Oncologist Dr. Herbie Will; he would suggest EGD/Stenting at and if no success, can pursue transfer to [place].
- GI evaluation; plan for EGD/Stent this afternoon.
- most recent chemo last (FOLFIRINOX).
02/26
Clear liquid diet, advance as tolerated
02/27
Advance diet to pur�ed
02/28
Hemoglobin dropped to 7.4 in the morning now 8.6.
Oncology consulted.
03/01
Globin dropped to 7.3 then repeat 8.0
Bilateral Pulmonary Emboli
- Multiple, bilateral, subsegmental lesions seen on CTA.
- Likely secondary hypercoagulability of malignancy.
- Pos SOB. No chest pain.
- IV heparin started.
- Check Echo.
- Transition to OAC v Lovenox prior to discharge.
- Follow for any new chest pain, worsening dyspnea, etc.
02/26
Heparin drip held for drop in hemoglobin.
Resumed heparin.
03/28
Once patient tolerates diet and hemoglobin stable will switch to NOAC
02/28
Hematology consult pending
will Consider Lovenox
03/01
Lovenox started and hemoglobin remains stable
Plan to discharge home with Lovenox.
Microcytic Anemia
- Hemoglobin dropped to 6.6, status post blood transfusion
- Patient with history of microcytic anemia and received blood transfusion during / after chemo.
- Hemoglobin improved to 8.3, heparin drip resumed
03/01
Hemoglobin stable
CODE STATUS: Full code
DVT prophylaxis: Heparin drip
Diet: Soft diet
Family communication: Discussed with family multiple occasions including patient's sister at bedside, brother at bedside, parents at bedside.
Disposition: Discharge home today
Total time spent on today's encounter was 40 minutes which included time spent in counseling the patient/family regarding diagnosis and treatment plan as listed above, goals of care, and symptom management. Case was discussed with nursing staff,
specialists, and care coordinators/case management. All labs and imaging personally reviewed by me. Remainder the time spent in detailed review of previous records, lab data, imaging, and other medical provider documentation.
Anticipated Discharge: Today
Discharge Plan
-
Patient Disposition: Home with Home Care
Discharge Diagnosis/Procedures: Duodenal Adenocarcinoma
Bilateral Pulmonary embolism
Anemia
Diet: As tolerated and Other diet
Additional Diets: soft diet, Small diet,, small frequent meals.
Activity: As tolerated
Blood Work: CBC within 1 week
Referrals:
Herbie Will MD [Non-Admitting Privileges, Hematology / Oncology] - 03/04/25
Evelina Whitten, [Active, Gastroenterology] - in two to three weeks
UNKNOWN - PT DOES,NOT KNOW [Family Provider]
Prescriptions:
New
enoxaparin 80 mg/0.8 mL Syringe
80 mg SC QPM 30 Days Qty: 24 2RF
sucralfate 1 gram Tablet
1 g PO ACHS 30 Days Qty: 120 0RF
Continued
trazodone 50 mg Tablet
50 mg PO HS
alprazolam 1 mg Tablet
1 mg PO HSPRN PRN (Reason: anxiety/sleep)
Changed
pantoprazole 40 mg Tablet,Delayed Release (Dr/Ec)
40 mg PO BID Qty: 30 0RF
Discharge Orders:
Discharge Patient (As Directed); Ordered 03/01/25
Ordered By: Smita Kyle
Discharge Date and Time
Print Language: GREEK
--- NOTE | 2025-03-01 14:16 | W.PN.GI.CBS2 ---
Today's Communication / Plan
-
continue soft diet
Assessment / Plan
-
Pt is a 54yo with hx breast CA with prior lumpectomy and XRT and recently diagnosed duodenal adeno CA and anemia with recent transfusion. She recently started chemo at [facility] with Dr. Dominguez. She now presents with abdominal pain and distention
that has been worsening over time with wt loss and limited oral intakes. CT on admission with concern for gastric outlet obstruction. Also noted b/l PE and pt was placed on heparin. Asked to see for duodenal obstruction. In review with patient
and family had EGD at [facility] in October with inability to pass scope. She had delay with getting appt at [facility] but had work up as below since end of December. She has been living on egg, yogurt and shakes and now with increased bloating and
difficulty eating. Wt loss 8-10 lbs since October. 02/25 s/p enteral stent placement after review with Dr. Dominguez from [facility]. Some persistent anemia since admission requiring transfusion
02/25/25 Fernández- Normal esophagus. An acquired malignant-appearing, intrinsic severe stenosis was found in
the first portion of the duodenum and was non-traversed. This was stented with a 22 mm x 6 cm WallFlex stent under fluoroscopic guidance.
- A large amount of food (residue) in the stomach.
- Acquired duodenal stenosis. Prosthesis placed.
- No specimens collected.
-concern for gastric outlet obstruction with known metastatic duodenal adenoma with mets
-current chemo last 02/18 (FOLFIRINOX)
-new PE with Heparin use during admission
-anemia with recent transfusion prior to admission
-breast CA with prior lumpectomy/XRT
-increased LFT's with liver mets
-wt loss
PLAN:
-continue stent diet (obstruction relieved)
-PPI and carafate
- f/u oncology
will sign off
-
Subjective
Subjective
Date of Service: March 01, 2025
Pt to goal diet. no vomiting
Objective
Data Reviewed
Laboratory Data:
Laboratory Results
03/01/25 11:56
03/01/25 04:08
Laboratory Results
PT 14.8 Sec (11.4-14.6) H 02/25/25 09:38
INR 1.11 02/25/25 09:38
APTT 77.3 Sec (23.4-35.0) H 02/28/25 13:46
Total Bilirubin 0.4 mg/dl (0.2-1.3) 02/28/25 03:20
AST 44 U/L (14-36) H 02/28/25 03:20
ALT 55 U/L (0-35) H 02/28/25 03:20
Alkaline Phosphatase 262 U/L (38-126) H 02/28/25 03:20
Lipase 381 U/L (23-300) H 02/24/25 22:01
Vital Signs and I&O:
Vital Signs
Temp Pulse Resp BP Pulse Ox
98.2 F 90 18 104/59 97
03/01/25 03:04 03/01/25 12:00 03/01/25 12:00 03/01/25 12:00 02/28/25 16:11
I&O
02/28/25 03/01/25 03/02/25
06:59 06:59 06:59
Intake Total 2435 / 2435 2231 223
Balance 2435 / 2435 2231 / 223
Physical Exam
Physical Exam
Neuro: Non Focal
--- NOTE | 2025-03-01 14:26 | CM ---
Patient with Hx metasatic duodenal adenocarcinoma on chemo with Dx Gastric Outlet Obstruction, b/l pulmonary emboli, anemia. Room air. Receiving Lovenox injections. PT; No skilled PT neededs.
Met with patient, her brother and ex-;
the patient says she feels ready for d/c today.
She is agreeable to having [facility] nurse for ongoing Lovenox teaching and understands they will see her tomorrow afternoon.
Spoke with [facility] (fax [phone]); Neena confirms that they have an available nurse to see the patient tomorrow for teaching visit.
Spoke with pharmacist, JOANIE Carrillo and confirmed Lovenox injections are available. Relayed same to patient/family.
Plan home today with [facility], with family.
--- NOTE | 2025-03-01 14:52 | W.PN.ONC2 ---
Today's Communication / Plan
-
Okay for hospital D/C, she will return to Dr. Will's care as outpt
Impression
Impression
Pulmonary embolism, now on anticoagulation
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
Hx DCIS
Anemia-- multifactorial
Plan
Plan
Causes for her anemia include a)tumor bleeding without iron deficiency-- b) anemia of inflammation secondary to mets-- c) chemosuppression of the marrow. Given lack of need for repeat transfusion since stenting while anticoagulated for PE indicates
that active bleeding unlikely. Would transfuse for indications of hgb <7gm/dl or symptoms.
Pt appears clinically stable, no objection to hospital discharged.
Subjective/Objective
Chief Complaint
Heme/Onc follow up of duodenal cancer and cytopenias
Subjective
Denies pain. Tolerating PO's with vomiting. Feels nauseated just thinking about trying to drink Ensure.
Vital Signs:
Vital Signs
Temp Pulse Resp BP Pulse Ox
99.3 F 95 19 108/61 96
03/01/25 14:40 03/01/25 14:41 03/01/25 14:41 03/01/25 14:41 03/01/25 14:47
Lab Results:
Laboratory Data
WBC 2.6 10^3/uL (4.8-10.8) L 03/01/25 04:08
Hgb 8.0 g/dL (12.0-16.0) L 03/01/25 11:56
Plt Count 247 10^3/uL (130-400) 03/01/25 04:08
PT 14.8 Sec (11.4-14.6) H 02/25/25 09:38
INR 1.11 02/25/25 09:38
APTT 77.3 Sec (23.4-35.0) H 02/28/25 13:46
eGFR > 60.00 03/01/25 04:08
Physical Exam
HEENT: Moist Mucous Membranes; No Jaundice
Cardiology: Normal Sinus Rhythm, S1 and S2
Pulmonary: Clear; No Wheezes
GI: Soft and Normal Bowel Sounds
Extremities: No C/C/E
Neuro: Non Focal
Review of Systems
Review of Systems
Constitutional: Reports Fatigue; Denies Fever
Head: Denies Sore Throat or Hearing Loss
Respiratory: Denies Dyspnea or Cough
Cardiovascular: Denies Chest Pain or Palpitations
Gastrointestinal: Reports Nausea/Vomiting; Denies Diarrhea
Genitourinary: Denies Hematuria
Skin: Denies Rash or Pruritis
Neurological: Denies Headache or Numbness
Psychiatric: Denies Depression
Hem/Lymphatic: Reports Easy Bruising; Denies Swollen Glands
[2025-03-01] MEDS: LOVENOX 80 MG SC (15:20)
--- NOTE | 2025-03-01 16:46 | PTCARENOTE ---
Patient's hemoglobin stable at noon 8.0. Patient will need lovenox injections daily at home. Patient's family member will be administering the injection. This RN educated him and he was able to administer without difficulty. Home nurses will
also be at the home. Patient was able to eat a couple of small meals today without difficulty, no nausea. Discharge orders were reviewed with all family members in the room.
== END 2025-03-01 16:24 | disposition home health service (06) | DRG 380 ==
LOC: IMU 04:26
PROVIDERS: Internal Medicine; Internal Medicine Gastroenterology; Nurse Practitioner Family; Physician Assistant; Student in an Organized Health Care Education/Training Program; ADMITTING PHYSICIAN Hospitalist; ATTENDING PHYSICIAN General Practice; CONSULT PHYSICIAN Internal Medicine Hematology & Oncology; EMERGENCY PHYSICIAN Emergency Medicine; OTHER PHYSICIAN Internal Medicine Gastroenterology; OTHER PHYSICIAN Surgery
PROC: 0D798DZ Dilation of Duodenum with Intraluminal Device, Via Natural or Artificial Opening Endoscopic (ICD-10-PCS; 2025-02-25)
PROC: 30243N1 Transfusion of Nonautologous Red Blood Cells into Central Vein, Percutaneous Approach (ICD-10-PCS; 2025-02-26)
DX: K31.1 Adult hypertrophic pyloric stenosis (principal); I26.94 Multiple subsegmental thrombotic pulmonary emboli without acute cor pulmonale; I26.99 Other pulmonary embolism without acute cor pulmonale; C17.0 Malignant neoplasm of duodenum; C77.9 Secondary and unspecified malignant neoplasm of lymph node, unspecified; C78.7 Secondary malignant neoplasm of liver and intrahepatic bile duct; R18.8 Other ascites; Z85.3 Personal history of malignant neoplasm of breast; Z92.3 Personal history of irradiation; Z80.42 Family history of malignant neoplasm of prostate; D50.9 Iron deficiency anemia, unspecified; F41.9 Anxiety disorder, unspecified; Z80.0 Family history of malignant neoplasm of digestive organs; Z90.49 Acquired absence of other specified parts of digestive tract
CPT/HCPCS: 71275; 74018; 74177; 76000; 80048; 80053; 82728; 83540; 83550; 83605; 83690; 84484; 85014; 85018; 85025; 85027; 85610; 85730; 86850; 86900; 86901; 86920; 93005; 93306; 97162; C1876; P9016; Q9967